=== PATIENT | female | born 1950 | race Caucasian/White ===

== ENCOUNTER 2020-03-12 05:31 | Inpatient (IN) | payer MEDICARE, OTHER ==
[~2020-03-12] VITALS: Ht 177.8 cm; Wt 67.7 kg
[2020-03-12] VITALS (26 sets, daily range): BP systolic 79–156; BP diastolic 53–92
[2020-03-12] MEDS ORDERED: LORazepam 2 MG/ML VIAL IV STA (05:35)
[2020-03-12] MEDS ORDERED: LORazepam 2 MG/ML VIAL As Ordered ONE (05:36)
[2020-03-12] MEDS ORDERED: PROPOFOL 1,000 MG/100 ML VIAL As Ordered ONE (05:41)
[2020-03-12 05:50] LABS: BASO # 0.1 10^3/uL (0.0-0.2); BASO % 0.5 % (0.0-1.0); EOS # 0.3 10^3/uL (0.0-0.5); EOS % 1.8 % (0.0-3.0); HEMATOCRIT 55.7 % (36.0-47.0); HEMOGLOBIN 19.7 g/dl (12.0-15.5); LYMPH # 1.3 10^3/uL (1.5-5.0); LYMPH % 7.6 % (24.0-44.0); MEAN CORPUSCULAR HEMOGLOBIN 36.5 pg (27.0-33.0); MEAN CORPUSCULAR HGB CONC 35.4 g/dl (32.0-36.5); MEAN CORPUSCULAR VOLUME 103.3 fl (80.0-96.0); MONO # 0.9 10^3/uL (0.0-0.8); MONO % 5.1 % (0.0-5.0); NEUTROPHILS # 14.2 10^3/uL (1.5-8.5); NEUTROPHILS % 84.6 % (36.0-66.0); PLATELET COUNT, AUTOMATED 369 10^3/uL (150-450); RED BLOOD COUNT 5.39 10^6/uL (4.00-5.40); WHITE BLOOD COUNT 16.8 10^3/uL (4.0-10.0)
[2020-03-12] MEDS ORDERED: propofoL 1,000 MG in IV 1 EA IV SCH (06:00)
[2020-03-12 06:03] LABS: INR 1.03; PARTIAL THROMBOPLASTIN TIME 26.5 SECONDS (24.2-38.5); PROTHROMBIN TIME 13.7 SECONDS (12.5-14.3)
[2020-03-12 06:06] LABS: ABG BASE EXCESS -7.4 (-2.0-2.0); ABG HCO3 21.1 MEQ/L (22.0-26.0); ABG O2 SATURATION 98.9 % (95.0-99.0); ABG PARTIAL PRESSURE CO2 52.7 mmHg (35.0-45.0); ABG PARTIAL PRESSURE O2 182.7 mmHg (75.0-100.0); ABG STANDARD HCO3 18.8 MEQ/L (22.0-26.0); ABG TOTAL CO2 22.7 MEQ/L (23.0-31.0)
[2020-03-12 06:27] LABS: ALBUMIN 3.6 GM/DL (3.2-5.2); ALT/SGPT 16 U/L (12-78); BILIRUBIN,DIRECT < 0.1 MG/DL (0.0-0.2); BILIRUBIN,TOTAL 0.5 MG/DL (0.2-1.0); BLOOD UREA NITROGEN 11 MG/DL (7-18); CALCIUM LEVEL 8.6 MG/DL (8.8-10.2); CARBON DIOXIDE LEVEL 27 MEQ/L (21-32); CHLORIDE LEVEL 98 MEQ/L (98-107); CK-MB VALUE MASS 3.7 NG/ML (<3.6); CPK CREATINE PHOSPHOKINASE 111 U/L (26-192); CREATININE FOR GFR 1.08 MG/DL (0.55-1.30); GLOMERULAR FILTRATION RATE 53.9 (>45); GLUCOSE, FASTING 152 MG/DL (70-100); MB/CK RELATIVE INDEX 3.33 (< OR =4); POTASSIUM SERUM 4.4 MEQ/L (3.5-5.1); SODIUM LEVEL 135 MEQ/L (136-145); TOTAL PROTEIN 7.5 GM/DL (6.4-8.2); TROPONIN I 0.02 NG/ML (< 0.10)
[2020-03-12] MEDS ORDERED: SUCCINYLCHOLINE INJ 200 MG/10 ML VIAL (J0330) IV STA (06:28)
[2020-03-12] MEDS ORDERED: ETOMIDATE INJ 20MG/10ML VIAL IV STA (06:28)
--- NOTE | 2020-03-12 06:47 | REPVR ---
PROCEDURE INFORMATION: Exam: XR Chest, 1 View Exam date and time: 03/12/2020 6:05 AM Age: 69 years old Clinical indication: Other: AMS; Additional info: Altered mental status TECHNIQUE: Imaging protocol: XR of the chest Views: 1 view. COMPARISON: No relevant prior studies available. FINDINGS: Tubes, catheters and devices: Termination of endotracheal tube in the right mainstem bronchus, requiring repositioning. Lungs: Interstitial prominence. Pleural space: Mild blunting of the right costophrenic angle. Heart/Mediastinum: Cardiomegaly. Vasculature: Calcification of the thoracic aorta. Bones/joints: Osteopenia, degenerative change, and scoliosis. IMPRESSION: Termination of endotracheal tube in the right mainstem bronchus, requiring repositioning. Electronically signed by: Braden Hauser On 03/12/2020 06:48:04 AM
--- NOTE | 2020-03-12 06:49 | REPVR ---
PROCEDURE INFORMATION: Exam: CT Head Without Contrast Exam date and time: 03/12/2020 5:34 AM Age: 69 years old Clinical indication: Altered mental status/memory loss; Confusion or disorientation TECHNIQUE: Imaging protocol: Computed tomography of the head without contrast. Radiation optimization: All CT scans at this facility use at least one of these dose optimization techniques: automated exposure control; mA and/or kV adjustment per patient size (includes targeted exams where dose is matched to clinical indication); or iterative reconstruction. COMPARISON: No relevant prior studies available. FINDINGS: Brain: Small-vessel ischemic change, without an acute cortical infarct. No space-occupying lesion, mass effect, or intracranial hemorrhage. Symmetric caliber of the cortical sulci. Cerebral ventricles: Normal configuration of the ventricles. Bones/joints: No acute calvarial pathology. Paranasal sinuses: No sinus fluid. Mastoid air cells: No mastoid effusion. Soft tissues: unremarkable soft tissues. IMPRESSION: Small-vessel ischemic change, without an acute cortical infarct. Electronically signed by: Braden Hauser On 03/12/2020 06:50:16 AM
[2020-03-12] MEDS ORDERED: levETIRAcetam INJection 1,000 MG in D5W 100 ML IV ONE (07:00)
[2020-03-12] MEDS ORDERED: cefTRIAXone SOD 2 GM in D5W MINI-BAG PLUS 50 ML IV ONE (07:15)
[2020-03-12] MEDS ORDERED: VANCOMYCIN HCL 1,000 MG, VIAL MATE ADAPTER 1 EACH in D5W 250 ML IV ONE (07:15)
[2020-03-12] MEDS ORDERED: ALBUTEROL SULFATE 2.5 MG/0.5 ML INH NEB SOLN NEB PRN (07:45)
[2020-03-12] MEDS ORDERED: LORazepam 2 MG/ML VIAL IV PRN (07:45)
[2020-03-12] MEDS ORDERED: NS 1,000 ML IV ONE (08:00)
[2020-03-12 08:27] LABS: ABG BASE EXCESS 1.4 (-2.0-2.0); ABG HCO3 26.5 MEQ/L (22.0-26.0); ABG O2 SATURATION 96.4 % (95.0-99.0); ABG PARTIAL PRESSURE O2 83.5 mmHg (75.0-100.0); ABG STANDARD HCO3 25.7 MEQ/L (22.0-26.0); ABG TOTAL CO2 27.8 MEQ/L (23.0-31.0); ABG pH (ARTERIAL) 7.407 UNITS (7.350-7.450)
[2020-03-12 08:47] LABS: AMPHETAMINES LEVEL URINE NEGATIVE (NEGATIVE); BARBITURATES URINE NEGATIVE (NEGATIVE); BENZODIAZEPINES URINE NEGATIVE (NEGATIVE); CANNABINOIDS URINE POSITIVE (NEGATIVE); COCAINE METABOLITE URINE NEGATIVE (NEGATIVE); METHADONE URINE NEGATIVE (NEGATIVE); OPIATES URINE NEGATIVE (NEGATIVE); PHENCYCLIDINE URINE NEGATIVE (NEGATIVE)
[2020-03-12] MEDS ORDERED: ALEV220T22 PO (08:58)
[2020-03-12] MEDS: propofoL 1,000 MG in IV 1 EA IV SCH ×4 (09:00→20:11)
[2020-03-12] MEDS: CHLORHEXIDINE GLUCONATE 0.12 % 15ML UDC (PERIDEX ORAL RINSE) MT SCH ×2 (09:00→20:11)
[2020-03-12] MEDS ORDERED: PANTOPRAZOLE 40MG VIAL (C9113 PER 1) IV SCH (09:00)
[2020-03-12 09:19] LABS: PROLACTIN 9.9 NG/ML
[2020-03-12] MEDS: ENOXAPARIN 40MG/0.4ML SYRINGE (J1650 PER 10MG) SC SCH (09:23)
[2020-03-12 10:46] LABS: C REACTIVE PROTEIN QUANTITATIV < 0.30 MG/DL (0.00-0.30)
[2020-03-12] MEDS: VANCOMYCIN HCL 750 MG, VIAL MATE ADAPTER 1 EACH in D5W 250 ML IV SCH (13:09)
[2020-03-12] MEDS: NS 0.45% 1,000 ML IV SCH (13:09)
--- NOTE | 2020-03-12 13:21 | HPE ---
HISTORY AND PHYSICAL DICTATED BY: Hemant Zamora DO. ATTENDING: Lola Osorio MD, Pulmonary Critical Care Medicine. DATE OF SERVICE: 03/12/2020 HISTORY OF PRESENT ILLNESS: Ms. Mayfield is a 69-year-old female who had presented to [facility] Emergency Department with her for a complaint of weakness and seizure like activity. The history is mostly obtained from the patient's as she is currently intubated and with sedation. The had stated that earlier in the morning at approximately 4:45 the patient had gone to the bathroom and had told the that she was feeling weird and possibly having a seizure. The patient's then states that she developed seizure like activity where her body kind of froze up. He said that she was unresponsive during this. He did not say that she was shaking just kind of appeared stiff. He states that she was not responding to him and did appear somewhat confused. When she presented to the Emergency Department she was vitally stable though felt to be somewhat hypoxic. The patient's states that to his knowledge she had not been complaining of anything prior to this. He denies any recent illnesses. He denies her complaining of any fevers, headaches, neck pains. There is no recent travel. The patient's states that to his knowledge she has not used any drugs. The patient also does not follow with any health care provider outpatient. He states that she had seen a provider previously; however, did not continue to see them as she did not like them. He stated that she was instructed to start a statin medication for her high cholesterol. The patient's denies any history that he knows of a seizure disorder. In the Emergency Room the patient was vitally stable; however, apparently had once again another witnessed episode of seizure like activity and due to the possibility of the patient being unable to protect her airway she was subsequently intubated. She was given a 1000 mg dose of Keppra. She was continued on propofol for sedation during her intubation. Additionally she was given a total of 4 mg of Ativan. Patient was given both Rocephin and vancomycin for empiric coverage of possible pneumonia. On evaluation in the Emergency Room the patient was intubated. She did not appear to be in status epilepticus at that time. PAST MEDICAL HISTORY: Hyperlipidemia. PAST SURGICAL HISTORY: Tubal ligation. SOCIAL HISTORY: Obtained from patient's who states that to his knowledge she is not a smoker. He denies any I.V. drug use or drug use. 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 REVIEW OF SYSTEMS: Review of systems was unable to be obtained due to the patient being sedated with mechanical ventilation. PHYSICAL EXAMINATION: Vital signs: Temperature 98.7, pulse 108, blood pressure 167/89, pulse oximetry 100% on ventilator assist control, respiratory rate 15, tidal volume 400, FiO2 50, PEEP 5. General: The patient is currently intubated with mechanical ventilation. She is sedated with propofol. She does appear critically ill. HEENT: Normocephalic, atraumatic. Eyes are nonicteric, they are equal and reactive to light. Dentition is fair. Neck: Her trachea is midline. She has an endotracheal tube in place. Cardiovascular: Patient has a normal S1 and S2. She has a slightly tachycardic rate with a regular rhythm. There are no clicks or rubs. There is a faint murmur, systolic ejection murmur present. Pulmonary: Patient has some scattered rhonchi bilaterally. There are no wheezes, no rales. Somewhat decreased breath sounds overall. There is symmetric chest expansion. Abdominal: Patient's abdomen is soft. It is nondistended. There is no abdominal bruising and there are no masses or organomegaly. Extremities: Patient's extremities are void of any edema. There is full and equal pulses bilateral upper and lower extremities. Neurologic: There appears to be no focal neurological deficits. A full neurological exam cannot be obtained as the patient is currently sedated with propofol. She does have some intermittent posturing during examination. LABORATORY DATA: Hematology: White blood cells 15.8, hemoglobin 19.7, hematocrit 55.7, platelet count 369. Chemistries: Sodium 135, potassium 4.4, chloride 98, CO2 27, BUN 11, creatinine 1.08, fasting glucose 152. Calcium 8.6, total bilirubin 0.5, AST 30, ALT 16, alkaline phosphatase 86. Total CK 111. Troponin 0.02. Total protein 7.5, albumin 3.6, TSH 1.38. Prolactin 9.9. Lactic acid 3.8. Urine toxicology positive for cannabinoids. Blood gas on ventilator with a pH of 7.40, PCO2 43, PO2 83.5. Carboxyhemoglobin 2.5. Blood cultures times 2 pending. IMAGING: Head CT obtained on arrival demonstrated small vessel ischemic changes without any acute cortical infarcts. Chest x-ray obtained emergently in the ER which demonstrated an endotracheal tube in the right main stem bronchus. A second chest x-ray was obtained which demonstrated improvement of positioning of the endotracheal tube; however, there appears to be some bilateral opacities possibly bilateral pulmonary infiltrates on her second chest x-ray. ASSESSMENT AND PLAN: Ms. Mayfield is a 69-year-old female who presented to [facility] with possible seizure like activity, apparently had a second witnessed seizure by ER staff and was subsequently intubated due to complications of airway protection. She was given Keppra I.V. in the Emergency Room as well as antibiotics and pulmonary critical care medicine was consulted for admission of the patient for further evaluation and management. 1. Seizure like activity: The patient had what appeared to be seizure like activity. The patient's and ER staff had stated the patient had developed some posturing like activity, she was unresponsive. Because she was unable to protect her airway she was subsequently intubated. She had been given 1000 mg of Keppra in the ED. To the 's knowledge and according to the medical record that is available the patient does not have any primary seizure disorder. She does have a leukocytosis and lactic acidosis which could be secondary to seizure like activity. Prolactin is only 9.9 at this time. Her urine toxicology did come back positive for cannabinoid ___; she is negative for any other drugs. At this time she is continued on propofol. I have spoken with neurology regarding the patient's care. At this time they will see her in the evening and their recommendations are appreciated. We will start the patient on Keppra 1000 mg twice a day for now. I have ordered an EEG inpatient to be done rather urgently to ensure that the patient is not in status epilepticus. Once patient improves clinically can consider MRI. 2. Acute hypoxemic respiratory failure: The patient had respiratory failure which is felt to be secondary to inability to protect her airway. It does appear that she likely aspirated. She has some rhonchorous breath sounds bilaterally. She has received vancomycin and Rocephin; will continue this. I have ordered a procalcitonin CRP. May consider changing over to Zosyn if patient clinically does not improve to give more coverage for aspiration pneumonia. Additionally the patient's carboxyhemoglobin is slightly elevated at 2.5. Her states she is not a smoker; however, her urine tox did come back positive for cannabinoids. If she smokes this could be consistent with that; however, if not she may have some carbon monoxide poisoning which could explain the seizure activity although the patient's physical exam is otherwise not consistent with elevated carboxyhemoglobin. Additionally patient does have the history of a murmur that apparently has never been fully investigated. 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 I have ordered an echocardiogram to assess for this. 3. Lactic acidosis: As stated patient has lactic acidosis she has been given a liter of normal saline. Her lactic acidosis may be secondary to the seizure like activity. She does not appear septic at this time. She is afebrile. 4. Leukocytosis: Once again her leukocytosis could be secondary to her seizure like activity. We will continue to monitor. She is receiving antibiotics. Procalcitonin is currently pending. 5. Murmur: Patient has a murmur; apparently this is a long standing issue since she was a child and she does not follow with any primary care physician therefore unclear what type of murmur or what clinical significance this plays; however, given her original hypoxia we will order an echocardiogram as patient's issue may be related to a possible TIA or CVA if that is the case, although at this time it does not appear to be that way. 6. DVT prophylaxis: Patient is currently on Lovenox. 7. GI prophylaxis: Patient is currently on Protonix, will continue. 8. Disposition: Patient's clinical status is currently pending and her EEG. If seizure activity may have to consider transfer otherwise we will continue to monitor patient. Critical Care Time: One hour and 30 minutes.
[2020-03-12] MEDS ORDERED: MIDAZOLAM INJ 2MG/2ML VIAL (J2250 PER 1MG) IV PRN (15:45)
[2020-03-12] MEDS ORDERED: SODIUM CHLORIDE 0.9% 1000ML IV ONE (15:45)
[2020-03-12] MEDS ORDERED: SUCCINYLCHOLINE 100 MG/5 ML SYRINGE (J0330) ONE (16:06)
[2020-03-12] MEDS ORDERED: ETOMIDATE INJ 20MG/10ML VIAL ONE (16:06)
--- NOTE | 2020-03-12 19:01 | CR ---
CONSULTATION REFERRING PHYSICIAN: Dr. Lola Osorio REASON FOR CONSULTATION: Possible seizures. HISTORY OF PRESENT ILLNESS: Petra Mayfield is a 69-year-old woman who was brought to [facility] Emergency Department due to complaint of weakness and seizure-like activity, according to . Patient was intubated. According to patient's , around 4:45 a.m. patient went to bathroom and told her that she was feeling weird. She then developed seizure-like activity, where her body froze up, and she became stiff. She was not responding to her . She appeared confused. She did not have any preceding injuries or illness. There were no complaints of headaches, fever, neck pain, or recent travel. There was no drug abuse. Patient does not follow with any outpatient provider. In the emergency room, patient had stable vital signs but again went into a seizure-like episode, and she was intubated in order to protect her airway. She was given Keppra 1000 mg intravenously, and she was started on propofol for sedation after mechanical intubation. She also received 4 mg of Ativan. Patient was given Rocephin and vancomycin. MEDICAL HISTORY: 1. Dyslipidemia. 2. Tubal ligation. SOCIAL HISTORY: She does not smoke, drink alcohol, or use illicit drugs. 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 FAMILY HISTORY: Could not be obtained. REVIEW OF SYSTEMS: Could not be obtained except as mentioned in history of present illness (HPI). PHYSICAL EXAMINATION: Temperature 97.2, pulse 128, respiratory rate 15, blood pressure 150/86 on mechanical ventilation. Patient is sedated. HEART: Regular rate and rhythm. LUNGS: Clear to auscultation. ABDOMEN: Soft, nontender. No pedal edema. No musculoskeletal abnormalities. No rash. No signs of meningeal irritation. Patient is on mechanical ventilation, under sedation. She does not follow any verbal or physical stimuli. Pupils are 3 mm bilaterally, reactive to light. Plantars are mute. Sensory, cerebellar, motor testing could not be performed. Deep tendon reflexes are mute. Gait could not be tested. DIAGNOSTIC STUDIES: CT scan of head showed small-vessel ischemic disease of brain. Hemoglobin was 19.7, hematocrit 55.7. WBC 16.8. Lactic acid 3.8. Sodium 135, prolactin level 9.9. Urine was positive for cannabinoids. ASSESSMENT: Possible generalized tonic-clonic seizures and concern for status epilepticus. PLAN: 1. Electroencephalogram (EEG). 2. MRI brain. 3. Continue Keppra 1000 mg intravenous (IV) twice a day. She is already on sedation and mechanical ventilation.
[2020-03-12] MEDS: levETIRAcetam INJection 1,000 MG in D5W 100 ML IV SCH (20:11)
[2020-03-12] MEDS: PANTOPRAZOLE 40MG VIAL (C9113 PER 1) IV SCH (20:11)
[2020-03-12] MEDS ORDERED: VANCOMYCIN HCL 1,000 MG, VIAL MATE ADAPTER 1 EACH in D5W 250 ML IV SCH (21:00)
[2020-03-13] VITALS (30 sets, daily range): BP systolic 113–168; BP diastolic 55–108; O2SAT 96
[2020-03-13] MEDS: propofoL 1,000 MG in IV 1 EA IV SCH ×6 (00:10→05:43)
[2020-03-13] MEDS: VANCOMYCIN HCL 750 MG, VIAL MATE ADAPTER 1 EACH in D5W 250 ML IV SCH (01:13)
[2020-03-13] MEDS: NS 0.45% 1,000 ML IV SCH (04:11)
[2020-03-13 05:14] LABS: HEMATOCRIT 46.9 % (36.0-47.0); MEAN CORPUSCULAR HEMOGLOBIN 36.1 pg (27.0-33.0); MEAN CORPUSCULAR HGB CONC 35.2 g/dl (32.0-36.5); MEAN CORPUSCULAR VOLUME 102.6 fl (80.0-96.0); RED BLOOD COUNT 4.57 10^6/uL (4.00-5.40); WHITE BLOOD COUNT 13.2 10^3/uL (4.0-10.0)
[2020-03-13 05:23] LABS: HEMOGLOBIN 16.5 g/dl (12.0-15.5); PLATELET COUNT, AUTOMATED 257 10^3/uL (150-450)
[2020-03-13] MEDS: levETIRAcetam INJection 1,000 MG in D5W 100 ML IV SCH ×3 (05:31→20:54)
[2020-03-13 05:40] LABS: ABG BASE EXCESS 0.1 (-2.0-2.0); ABG HCO3 24.5 MEQ/L (22.0-26.0); ABG PARTIAL PRESSURE CO2 39.1 mmHg (35.0-45.0); ABG PARTIAL PRESSURE O2 88.6 mmHg (75.0-100.0); ABG STANDARD HCO3 24.5 MEQ/L (22.0-26.0); ABG TOTAL CO2 25.7 MEQ/L (23.0-31.0); ABG pH (ARTERIAL) 7.414 UNITS (7.350-7.450)
[2020-03-13 05:40] LABS: ALBUMIN 2.8 GM/DL (3.2-5.2); BILIRUBIN,TOTAL 0.8 MG/DL (0.2-1.0); CALCIUM LEVEL 7.7 MG/DL (8.8-10.2); CK-MB VALUE MASS 1.9 NG/ML (<3.6); CREATININE FOR GFR 1.04 MG/DL (0.55-1.30); GLOMERULAR FILTRATION RATE 56.3 (>45); MB/CK RELATIVE INDEX 1.51 (< OR =4); POTASSIUM SERUM 3.1 MEQ/L (3.5-5.1); TOTAL PROTEIN 5.4 GM/DL (6.4-8.2); TROPONIN I 0.04 NG/ML (< 0.10)
[2020-03-13] MEDS ORDERED: MAG SULF 1GM/100ML (MAG RUN) 1 GM in IV 1 EA IV ONE (06:00)
[2020-03-13 06:04] LABS: MAGNESIUM LEVEL 1.7 MG/DL (1.8-2.4)
[2020-03-13] MEDS: KCL 10MEQ/100ML SWI (KRUN) 10 MEQ in IV 1 EA IV SCH ×6 (06:30→13:48)
--- NOTE | 2020-03-13 07:51 | REP ---
INDICATION: intubated. COMPARISON: Portable chest dated 03/12/2020 at 6:52 a.m.. TECHNIQUE: Single AP view performed portably with the patient upright. FINDINGS: The endotracheal tube tip remains in satisfactory position at the level of the aortic arch. There is a nasogastric tube with the to her hip but terminating in the left upper abdomen. The precise location of the distal tip is excluded with inferior film margin. There is a small opacity inferiorly in the left lung compatible with an infiltrate. The remainder of the lung lechuga are clear. Cardiac size is normal. The rosario, mediastinum, and skeletal structures are unremarkable. IMPRESSION: Small focal infiltrate inferiorly in the left lung. The endotracheal tube and nasogastric tube remain in satisfactory positions. <Electronically signed by Simon Young > 03/13/20 [id number]
[2020-03-13] MEDS ORDERED: cefTRIAXone SOD 2 GM in D5W MINI-BAG PLUS 50 ML IV SCH (08:00)
--- NOTE | 2020-03-13 08:18 | ECGEPIP ---
[facility] - ED Test Date: 2020-03-12 Pat Name: MCKENZIE OSEI Department: Room: - Gender: Female Combat Control: BERNARDA : 1950 Requested By: REMA Cobos Order Number: [id number] Reading MD: Steven Howard Measurements Intervals [place] Rate: 113 P: 84 GA: 190 QRS: -48 QRSD: 85 T: 87 QT: 339 QTc: 466 Interpretive Statements SINUS TACHYCARDIA WITH FREQUENT SUPRAVENTRICULAR PREMATURE COMPLEXES LEFT AXIS DEVIATION LEFT VENTRICULAR HYPERTROPHY AND ST-T CHANGE Comparison tracing not on file Electronically Signed on 03-13-2020 8:18:38 EST by Steven Howard
[2020-03-13] MEDS: ENOXAPARIN 40MG/0.4ML SYRINGE (J1650 PER 10MG) SC SCH (08:51)
[2020-03-13] MEDS: PANTOPRAZOLE 40MG VIAL (C9113 PER 1) IV SCH ×2 (08:51→20:54)
[2020-03-13] MEDS ORDERED: METOPROLOL TART 12.5 MG PER 1/2 TAB PO SCH (09:00)
[2020-03-13] MEDS ORDERED: FUROSEMIDE 20MG/2ML VIAL (J1940) IV ONE (11:00)
[2020-03-13 11:02] LABS: CALCIUM LEVEL 8.6 MG/DL (8.8-10.2); CREATININE FOR GFR 1.06 MG/DL (0.55-1.30); PERCENT SATURATION 13.9 % (13.2-45.0); POTASSIUM SERUM 3.5 MEQ/L (3.5-5.1)
--- NOTE | 2020-03-13 11:27 | CCN ---
CRITICAL CARE NOTE DATE: 03/13/2020 SUBJECTIVE: Ms. Mayfield was seen and examined this morning. She did well on sedation vacation. She was a little rapid shallow and breathing index was a little high; however, the patient is seen to have good strength. She was subsequently extubated today and appears to be doing well, currently on room air. On reevaluation, the patient is rather agitated at times. She does not appear to be oriented to person, place, or time; however, her orientation appears to wax and wane. According to nurses overnight, the patient did have some bloody output from her NG tube, and she was started on b.i.d. Protonix. Currently as I was seeing the patient, she appears to be confused at times and does not provide any additional history. She does not complain of any pain. She just states that she does not want to speak with me. OBJECTIVE: VITAL SIGNS: Temperature 97.9, pulse 103, respiratory rate 19, blood pressure 157/95, pulse oximetry 96% on room air. GENERAL: The patient is awake and alert. She is intermittently oriented to person. She is not oriented to time or place. The patient does appear confused. She does state that she feels confused herself. HEENT: Atraumatic, normocephalic. Her eyes are nonicteric. Pupils are equal and reactive to light. Trachea is midline. Her mucous membranes are pink and moist. CARDIOVASCULAR: Patient has a normal S1, S2. She has a tachycardic rate with some ectopic beats. There is a faint murmur present that appears to be systolic. There are no clicks or rubs. PULMONARY: The patient has somewhat decreased breath sounds, but overall good respiratory effort. There are some rhonchi mostly in the left lower lung region. She does have some scattered wheezing throughout. There are no crackles or rales. ABDOMEN: The patient's abdomen is soft, nondistended, and nontender with no rebound tenderness or guarding. There are normoactive bowel sounds. No organomegaly. EXTREMITIES: The patient's extremities are void of any edema. There are full and equal pulses bilaterally. NEUROLOGIC: The patient appears to move all limbs spontaneously. There are no focal neurological deficits. She does not participate in a full neurological exam as she gets agitated. PSYCHIATRIC: The patient appears agitated. LABORATORY DATA: Hematology: White blood cell 13.2, hemoglobin 16.5, hematocrit 46.9, platelet count 257,000. Chemistries: Sodium 133, potassium 3.1, chloride 99, CO2 of 27, BUN 12, creatinine 1.04, glucose 97, calcium 7.7, magnesium 1.7, total bilirubin 0.8, AST 21, ALT 10, alkaline phosphatase 68, total protein 5.4, albumin 2.8. Troponin 0.04. Microbiology: Blood cultures negative x2. IMAGING: Chest x-ray obtained prior to her extubation demonstrated her endotracheal tube and nasogastric tube in satisfactory position; however, there appears to be a small opacity in the left lower lung. Transthoracic echocardiogram report JESUS demonstrating severe global left ventricular hypokinesis with mild paradoxical septal motion with LVEF of approximately 15% with low cardiac output. Grade 1 left ventricular diastolic dysfunction with impaired relaxation filling pattern and some sparkle appearance of the myocardium with right ventricular hypokinesis. There is some thickening of the interatrial septum and trace pericardial effusion with increased pulmonary artery systolic pressures and mild mitral regurgitation and mild aortic valve sclerosis, possibly secondary to infiltrative cardiomyopathy. ASSESSMENT AND PLAN: Mrs. Mayfield is a 69-year-old female who presents to [facility] Emergency Department originally with seizure-like activity and was intubated due to complications of airway protection. She was started on Keppra intravenous (IV) in the emergency room, as well as antibiotics. The patient was transferred to the intensive care unit (ICU) where pulmonary critical care medicine was consulted. She has been receiving Keppra 1000 mg b.i.d. She has been successfully extubated today currently pending EEG and MRI. 1. Seizure-like activity: The patient had what appeared to be seizure-like activity according to the patient's and ER staff. She had some posturing-like activity and was unresponsive. Additionally, the patient was noted to become aggressive, agitated, and required endotracheal intubation due to inability to protect her airway. She has since been started on Keppra 1000 mg b.i.d. The patient has been seen by neurology, the case has been discussed, and their recommendations are appreciated. Currently continuing Keppra 1000 mg b.i.d. The patient is planned to have an EEG today, as well as an MRI today. At this time, not completely clear whether the patient truly had a seizure or not. 2. Acute hypoxemic respiratory failure: The patient's acute hypoxemic respiratory failure was secondary to her inability to protect her airway. It does look like she has possibly aspirated. She does have some continued scattered rhonchi worse on the left side. Additionally, her chest x-ray from today did demonstrate an infiltrate in the left lung base. She has received both vancomycin and Rocephin and currently continued on this. Anticipate will likely post exchange manager to Augmentin p.o.; however, the patient has just been extubated, so will likely post exchange manager once she is able to tolerate p.o. Will continue to monitor. Currently the patient is on room air and doing well. 3. Heart murmur: The patient's had stated that she has had a heart murmur since childhood. We have ordered a TTE, which has resulted. Per TTE report, the patient has severe global left ventricular hypokinesis with mild paradoxical septal motion with an left ventricular ejection fraction (LVEF) of 15%, low cardiac output, and a grade 1 left ventricular diastolic dysfunction with impaired relaxation filling pattern, and right ventricular hypokinesis with some thickening of the interatrial septum with a trace pericardial effusion, as well as mild increased pulmonary artery (PA)systolic pressure, mild mitral regurgitation (MR), and mild aortic valve sclerosis. Given these findings, it was suggested that the patient possibly has an infiltrative cardiomyopathy such as amyloidosis; however, she does have a polycythemia, which can be seen in the setting of hemochromatosis. We will order iron studies to investigate whether she has a hemochromatosis with involvement of the myocardium. 4. Aspiration pneumonia/pneumonitis: As stated previously, the patient likely has aspiration pneumonia/pneumonitis. White count is slightly elevated. She remains afebrile, but during her episode of her seizure-like activity she likely aspirated. Chest x-ray does demonstrate an infiltrate in the left base. She has been receiving Rocephin and vancomycin. Once able to tolerate p.o., we will change to Augmentin 875 twice daily for five to seven days. 5. Polycythemia: Previously the patient had polycythemia maybe secondary to smoking, although slightly elevated for that. Given her TTE findings, this could be secondary to hemochromatosis. I have ordered iron studies. We will continue to monitor. 6. Tachycardia: The patient has sinus tachycardia with occasional premature ventricular contractions (PVCs). I have started her on metoprolol 12.5 mg b.i.d. for heart rate control. 7. Deep vein thrombosis (DVT) prophylaxis: The patient is currently on Lovenox 40 mg daily and will continue. 8. Gastrointestinal (GI) prophylaxis: The patient was noted to have maybe some blood angelito in her nasogastric (NG) tube yesterday. She has been started on Protonix 40 mg b.i.d. and will continue for now. DISPOSITION: Overall, the patient has shown improvement. She is currently extubated doing well on room air. Her clinical status is pending on the EEG and MRI ordered for today. However, will likely transition to hospital service and downgrade to progressive care unit (PCU) with 24-48 hours. Critical care time: 45 minutes.
--- NOTE | 2020-03-13 12:31 | ECHO ---
DATE OF PROCEDURE: 03/12/2020 Age: 69 Gender: Female Height: 177 cm Weight: 64 kg REFERRING PHYSICIAN: Hemant Zamora DO. INDICATION: Acute stroke. MEASUREMENTS: 2D Measurements: Left atrium 2.4 cm Intraventricular septum 1.19 cm Posterior wall 0.87 cm Left ventricle diastole 4.85 cm Aortic annulus 1.9 cm Aortic root 3.1 cm Proximal ascending aorta 3.2 cm Inferior vena cava 1.1 cm with more than 50% respiratory variation Central venous pressure estimated to be 5-10 mmHg Doppler Measurements: No aortic stenosis No aortic regurgitation Aortic valve velocity 116 cm/s LVOT velocity 76.5 cm/s LVOT VTI 12.0 cm Mild mitral regurgitation Mitral E velocity 48.7 cm/s Mitral A velocity 71.0 cm/s Mitral deceleration time 180 msec Trace tricuspid regurgitation No pulmonic regurgitation Pulmonary artery acceleration time 99 msec MITRAL ANNULAR TISSUE DOPPLER E prime septal 2.6 cm/s, E prime lateral 3.7 cm/s DESCRIPTION: Rhythm was sinus with the appearance of monomorphology suggestive LVDD. Image quality was adequate. This was a 2D, M-mode, color flow Doppler, and pulsed wave Doppler examination including mitral annular tissue Doppler. CONCLUSIONS: 1. Normal left ventricle size at end-diastole. Severely globally hypokinetic left ventricle with very mild paradoxical septal motion. Severe reduction of left ventricular left ventricular (LV) systolic function. Left ventricular ejection fraction (LVEF) of 15% by visual assessment. Somewhat sparkly/ground- glass appearance of the myocardium. Grade 1 left ventricular (LV) diastolic dysfunction (impaired relaxation filling pattern). Suggestive of elevated mean left atrial pressure. 2. Normal right ventricle size with severe right ventricle hypokinesis. Severe reduction of overall right ventricle systolic function. 3. Suggestive of mild elevation of pulmonary artery systolic pressure. 4. Somewhat thick appearance of the interatrial septum possibly due to harmonic imaging alone. Consider infiltrative process. 5. Mild aortic valve sclerosis of a 3-cuspid aortic valve aortic valve. No aortic regurgitation. 6. Nonspecific focal thickening of the distal portion of the anterolateral tricuspid leaflet. Trace tricuspid regurgitation. 7. Late occurrence of a few saline bubbles observed in the left ventricle (nonspecific). 8. Trace pericardial effusion. ADDITIONAL COMMENTS: Consider infiltrative cardiomyopathy, for example consider amyloidosis. MTDD
[2020-03-13] MEDS ORDERED: haloperidoL 5 MG TAB PO ONE (14:00)
[2020-03-13] MEDS ORDERED: LORazepam 1 MG TAB PO ONE (14:00)
[2020-03-13] MEDS ORDERED: LORazepam 2 MG/ML VIAL IV STA (14:23)
[2020-03-13] MEDS ORDERED: PROHANCE 279.3MG/ML 15ML VIAL As Ordered ONE (14:26)
[2020-03-13] MEDS: SPIRONOLACTONE 25 MG TAB PO SCH (16:21)
[2020-03-13] MEDS: METOPROLOL SUCC *XL* 25MG TAB (TopROL *XL*) PO SCH (16:22)
[2020-03-13 17:58] LABS: APPEARANCE, URINE CLEAR (CLEAR); BACTERIA, URINE AUTO 1+ (NEGATIVE); BILIRUBIN, URINE AUTO NEGATIVE (NEGATIVE); BLOOD, URINE BLOOD 2+ (NEGATIVE); COLOR, URINE STRAW (YELLOW); GLUCOSE, URINE (UA) AUTO NEGATIVE (NEGATIVE); KETONE, URINE AUTO NEGATIVE (NEGATIVE); LEUKOCYTE ESTERASE, URINE AUTO NEGATIVE (NEGATIVE); MUCUS, URINE SMALL (NEGATIVE); NITRITE, URINE AUTO NEGATIVE (NEGATIVE); PROTEIN, URINE AUTO NEGATIVE (NEGATIVE); RBC, URINE AUTO 18 /HPF (0-3); SPECIFIC GRAVITY URINE AUTO 1.006 (1.002-1.035); SQUAMOUS EPITHELIAL CELL UR AU 0 /HPF (0-6); UROBILINOGEN, URINE AUTO 0.2 mg/dL (0.0-2.0); WBC, URINE AUTO 2 /HPF (0-3)
[2020-03-13 18:29] LABS: CREATININE,RANDOM URINE 24.8 MG/DL
[2020-03-13 19:20] LABS: ABG BASE EXCESS 4.4 (-2.0-2.0); ABG HCO3 30.8 MEQ/L (22.0-26.0); ABG O2 SATURATION 98.9 % (95.0-99.0); ABG PARTIAL PRESSURE CO2 51.5 mmHg (35.0-45.0); ABG PARTIAL PRESSURE O2 139.3 mmHg (75.0-100.0); ABG STANDARD HCO3 28.4 MEQ/L (22.0-26.0); ABG TOTAL CO2 32.3 MEQ/L (23.0-31.0); ABG pH (ARTERIAL) 7.394 UNITS (7.350-7.450)
[2020-03-13] MEDS: ENTRESTO 24-26MG TABLET (SACUBITRIL/VALSARTAN) PO SCH ×2 (20:55→21:00)
[2020-03-14] VITALS (9 sets, daily range): BP systolic 121–155; BP diastolic 58–77
[2020-03-14 05:19] LABS: BASO # 0.1 10^3/uL (0.0-0.2); BASO % 0.5 % (0.0-1.0); EOS # 0.3 10^3/uL (0.0-0.5); EOS % 1.9 % (0.0-3.0); HEMATOCRIT 49.7 % (36.0-47.0); LYMPH # 1.1 10^3/uL (1.5-5.0); LYMPH % 7.3 % (24.0-44.0); MEAN CORPUSCULAR HEMOGLOBIN 35.8 pg (27.0-33.0); MEAN CORPUSCULAR HGB CONC 34.2 g/dl (32.0-36.5); MEAN CORPUSCULAR VOLUME 104.6 fl (80.0-96.0); MONO # 1.3 10^3/uL (0.0-0.8); MONO % 8.8 % (0.0-5.0); NEUTROPHILS # 12.2 10^3/uL (1.5-8.5); PLATELET COUNT, AUTOMATED 255 10^3/uL (150-450); RED BLOOD COUNT 4.75 10^6/uL (4.00-5.40); WHITE BLOOD COUNT 15.1 10^3/uL (4.0-10.0)
[2020-03-14 05:54] LABS: BLOOD UREA NITROGEN 10 MG/DL (7-18); CALCIUM LEVEL 8.2 MG/DL (8.8-10.2); CARBON DIOXIDE LEVEL 27 MEQ/L (21-32); CHLORIDE LEVEL 102 MEQ/L (98-107); CREATININE FOR GFR 0.81 MG/DL (0.55-1.30); GLOMERULAR FILTRATION RATE > 60.0 (>45); GLUCOSE, FASTING 92 MG/DL (70-100); MAGNESIUM LEVEL 1.8 MG/DL (1.8-2.4); POTASSIUM SERUM 3.4 MEQ/L (3.5-5.1); SODIUM LEVEL 137 MEQ/L (136-145)
--- NOTE | 2020-03-14 08:04 | REP ---
INDICATION: intubated. COMPARISON: Of portable chest dated 03/13/2020 at 6:20 a.m.. TECHNIQUE: Single AP view of the chest performed portably with the patient upright. FINDINGS: The endotracheal tube and nasogastric tube have been removed. The small infiltrate identified previously in the left lung inferiorly has resolved. There is a new zone of discoid atelectasis in the left mid lung. There is atelectasis in the lung bases bilaterally. The upper lung zones are clear. Cardiac size is normal. IMPRESSION: New findings as described above. <Electronically signed by Simon Young > 03/14/20 0800
[2020-03-14] MEDS ORDERED: PANTOPRAZOLE 40MG VIAL (C9113 PER 1) IV SCH (09:00)
[2020-03-14] MEDS: levETIRAcetam INJection 1,000 MG in D5W 100 ML IV SCH (09:52)
--- NOTE | 2020-03-14 09:52 | CR ---
CONSULTATION DATE OF CONSULTATION: 03/13/2020 REFERRING PHYSICIAN: Hemant Zamora REASON FOR CONSULTATION: Acute on chronic systolic heart failure, dilated cardiomyopathy. HISTORY OF PRESENT ILLNESS: Mrs. Petra Mayfield is a 69-year-old woman with history of hypercholesterolemia who apparently does not follow with doctors on a regular basis. She was brought to the hospital with altered mental status and complaints of weakness and convulsive activity 03/12/2020. She was having recurrent seizures and was admitted to the intensive care unit (ICU). She had acute hypoxic respiratory failure and required intubation and ventilation, lactic acidosis, leukocytosis, and heart murmur. She was given medication for seizures. She was able to be extubated earlier today. No family members were present at the time of my evaluation of this patient. The patient has been combative and uncooperative since being extubated. She just received sedation and was not able to answer any questions for me. She had an echocardiogram Doppler performed 03/12/2020 which has been reported under separate cover. The left ventricle was normal in size at end-diastole. The left ventricle is severely globally hypokinetic with very mild paradoxical septal motion and severe reduction of overall left ventricle (LV) systolic function. Left ventricular ejection fraction (LVEF) 15% by visual estimate. Somewhat sparkly/ground glass appearance of the myocardium. Grade 1 LV diastolic dysfunction. Impaired relaxation filling pattern. Suggestive of elevated mean left atrial pressure. Normal right ventricle (RV) size with severe right ventricle hypokineses. Severe reduction of overall RV systolic function. Suggestive of mild elevation of pulmonary artery systolic pressure. Somewhat thick appearance of the intraatrial septum possibly due to harmonic imaging alone. Consider infiltrative process. Mild aortic valve sclerosis of a three-cusp aortic valve. No aortic stenosis or regurgitation. Nonspecific focal thickening of the distal portion of the anterior mitral tricuspid leaflet with trace mitral regurgitation. Late occurrence of a few bubbles observed in the left ventricle (nonspecific). Trace pericardial effusion. CARDIAC SYMPTOMS STATUS: Patient currently unable to answer any questions with regard to cardiac symptoms due to sedation. PAST MEDICAL AND SURGICAL HISTORY: Hyperlipidemia. Status post tubal ligation. SOCIAL HISTORY: Social history obtained from the history of present illness (HPI) of the present medical electronic medical records (EMR). Nonsmoker. No IV drug abuse. 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 REVIEW OF SYSTEMS: Unobtainable due to patient being sedated. PHYSICAL EXAMINATION: At the time of my examination, the patient was sedated and verbally unresponsive. Normal body weight woman, , who appears her chronological age. Height 70 inches, weight 67.7 kg, body mass index (BMI) 21.4. Pulse 113 (regular), respiratory rate 24, temperature 97.8, blood pressure 137/95, oxygen saturation 89% on room air. No conjunctival pallor, sclerae icterus, or xanthelasmas. Oral mucosa was moist and without pallor or cyanosis. Jugular venous pulsations were to the angle of the jaw with the patient angled at 30 degrees. Trachea midline. No palpable thyroid. No clubbing of the nail beds, cyanosis, or splinter hemorrhages. No skin lesions, skin pallor, or icterus. Mood and affect and orientation to person, place, and time could not be properly assessed as the patient has received sedation and was verbally non-responsive. Curvature of the spine appeared normal. Gait could not be tested as the patient is sedated. Gross motor strength and tone could not be adequately assessed as the patient is presently sedated. Respiratory and expansion and effort appeared normal. No dullness to percussion. No crackles or wheezes. No palpable apex beat. No parasternal lifts, heaves, thrills, or palpable heart sounds. First heart sound normal. Second heart sound was increased in intensity. A mid diastolic gallop was present. No diastolic murmurs. Grade 2 systolic ejection murmur heard maximum over the right second intercostal space. Carotids were normal in volume and contour without bruits. No palpable abdominal aorta. No abdominal bruits. Pedal pulses normal. No peripheral edema in the lower extremities. No varicose veins. Abdomen was soft with normal bowel sounds. No hepatosplenomegaly or other organomegaly. Liver span was difficult to assess. Stool for occult blood not presently indicated. INVESTIGATIONS: Electrocardiogram 03/12/2020 at 0625 hours shows sinus tachycardia with frequent premature atrial contractions (PACs), left ventricular hypertrophy (LVH) by voltages, left axis deviation, nonspecific ST-T abnormalities. AP portable chest x-ray (upright) acquired 03/12/2020 at 0620 hours reported a small focal infiltrate inferiorly in the left lung. Endotracheal tube and nasogastric tube in satisfactory positions. Cardiac size normal. Remainder of the lung lechuga clear. Laboratory work 03/13/2020 showed sodium 135, potassium 3.5, chloride 100, CO2 25, BUN 11, creatinine 1.06, estimated GFR 55.0, glucose 108, calcium 8.6, NT-proBNP 3392, total protein 5.4, albumin 2.8. Laboratory work 03/12/2020 showed lactic acid 3.8, TSH 1.30. Laboratory work 03/12/2020 showed WBC 16.8, hemoglobin 19.7, hematocrit 55.7, platelets 369. ASSESSMENT AND RECOMMENDATIONS: 1. Dilated cardiomyopathy involving both the left and right ventricles. Left ventricle was severely globally hypokinetic with no distinct regional wall motion abnormalities. Slight paradoxical motion appeared to be present. A somewhat ground glass/sparkly appearance of the myocardium raises concern for infiltrative cardiomyopathy such as amyloid. At this point, there is a wide range of possibilities for the differential diagnoses for the etiology of this patient's dilated cardiomyopathy including, but not all inclusive of: idiopathic dilated cardiomyopathy, postviral cardiomyopathy, genetic/familial cardiomyopathy, infiltrative cardiomyopathy such as amyloid cardiomyopathy, and less likely ischemic cardiomyopathy. At this point, I recommend getting the patient on anti-heart failure therapy and maximizing this as much as possible while in hospital. She can be worked up more extensively as an outpatient and if they are willing to go to [place], [place] she could be referred to an advanced heart failure specialist with consideration of obtaining a cardiac catheterization and a cardiac MRI. With regard to initiating heart failure therapy, I have switched her from metoprolol tartrate to metoprolol succinate. My plan is to titrate this medication upwards as tolerated while she is in hospital. I will introduce Entresto. I will place her on an oral fluid restriction and sodium restriction. Recommend patient be seen by cardiac rehabilitation. I will consider adding spironolactone as well to the patient's regimen. 2. Systolic heart failure (acute on chronic). As per dilated cardiomyopathy category above. 3. Hypercholesterolemia. Recommend obtaining a fasting lipid profile once the patient is back on an oral diet. She was not on any statin therapy prior to admission. 4. Nonrheumatic aortic valve disease. She has a systolic ejection murmur. No aortic stenosis or regurgitation detected on the echocardiogram. 5. Abnormal ECG. ECG findings as above. Thank you kindly for asking me to participate in the cardiac care of this patient.
[2020-03-14] MEDS ORDERED: MAG SULF 1GM/100ML (MAG RUN) 1 GM in IV 1 EA IV ONE (10:00)
[2020-03-14] MEDS: ENTRESTO 24-26MG TABLET (SACUBITRIL/VALSARTAN) PO SCH ×2 (10:06→21:27)
[2020-03-14] MEDS: SPIRONOLACTONE 25 MG TAB PO SCH (10:06)
[2020-03-14] MEDS: METOPROLOL SUCC *XL* 25MG TAB (TopROL *XL*) PO SCH (10:07)
[2020-03-14] MEDS: ENOXAPARIN 40MG/0.4ML SYRINGE (J1650 PER 10MG) SC SCH (10:08)
[2020-03-14] MEDS: PANTOPRAZOLE 40MG TAB (PROTONIX) PO SCH (10:09)
--- NOTE | 2020-03-14 10:45 | CCN ---
CRITICAL CARE NOTE DATE: 03/14/2020 SUBJECTIVE: Ms. Mayfield was seen and examined this morning. This morning, the patient does appear to be a little more alert. She is more conversant; however, she does have in and out issues with confusion in terms of what year it is. Further history was taken from the patient's who has revealed today that she does have some degree of dementia; although, the patient overall does not follow with any health care providers. Apparently, the patient does not like health care providers, she does not believe in conventional medicine, and follows a holistic approach to her medical care. This morning, the patient had stated that she feels okay and that the only thing that was bothering her was the current providers. When asked at bedside the patient's goals of care, she had stated that she would like to be DNR/DNI. She has also refused all of her medications, as well as any of the imaging tests that were previously ordered. This was discussed with the patient's who would be her health care proxy. He stated that he will discuss with his daughter to contact the patient and have a discussion. At this time, she does remain FULL CODE. The patient was updated on her condition including her biventricular heart failure. She states that she would not want any invasive procedures done at this current time. OBJECTIVE: VITAL SIGNS: Temperature 98.6, pulse 94, respiratory rate 16, blood pressure 146/58, pulse oximetry 96% on room air. GENERAL: The patient is awake. She is alert. She is oriented to person and place, but not time. She does appear agitated at times during the exam and confused at times. She has somewhat of a flat affect. HEENT: Atraumatic/normocephalic. Eyes are nonicteric. Trachea is midline. Mucous membranes are pink and moist. There is no macroglossia. CARDIOVASCULAR: The patient has a normal S1, S2. She has a fairly tachycardic heart rate. There is a regular rhythm with occasional ectopic beats. She does have a soft systolic ejection murmur present. PULMONARY: She has overall clear vesicular breath sounds though there are some mild rhonchi in the left lower lung region. She has symmetric chest expansion. ABDOMEN: The patient's abdomen is soft, nondistended, and nontender. There are normoactive bowel sounds. EXTREMITIES: The patient is void of any edema. There are full and equal pulses in bilateral upper and lower extremities. NEUROLOGIC: There are no focal neurological deficits. PSYCHIATRIC: The patient has an overall flat affect. LABORATORY DATA: Hematology: White blood cell 15.1, hemoglobin 17.0, hematocrit 49.7, platelet count 255,000. Chemistries: Sodium 137, potassium 3.4, chloride 102, CO2 of 27, BUN 10, creatinine 0.81, fasting glucose 92, calcium 8.2, magnesium 1.8. Erythropoietin 66.2. NT-proBNP 3392. Peripheral smear demonstrating erythrocytes appear normal in number and macrocytic with an increase in hemoglobin level. Leukocytes, neutrophils, and platelet count within normal limits. ASSESSMENT AND PLAN: Mrs. Mayfield is a 69-year-old female with no known past medical history who presented to [facility] Emergency Department originally with seizure-like activity and was intubated due to reported airway protection. She was started on Keppra intravenous (IV) in the emergency room, as well as antibiotics and transferred to the intensive care unit (ICU) where pulmonary critical care medicine was consulted. She has since been started on Keppra b.i.d. She was successfully extubated yesterday. She had an EEG and MRI pending. After extubation, the patient has remained fairly agitated and noncompliant. She refuses EEG and MRI, as well as her medications. She had received an echocardiogram, which demonstrated biventricular heart failure with a left ventricular ejection fraction (LVEF) of 15%. The patient has been seen and evaluated by cardiology with recommendations. 1. Seizure-like activity: On original presentation, the patient had reportedly had seizure-like activity per the patient's and ER staff. This was apparently posturing-like activity and at one point, she became unresponsive with inability to protect her airway and she was intubated in the ER. She has since been extubated and doing fairly well. She has continued on 1000 mg b.i.d. of Keppra. She has been seen by neurology and their recommendations are appreciated. She had an EEG that was planned; however, the patient has refused to have this. Initially, MRI was ordered as well. Once again, she has refused the MRI. At this point in time, it is not completely clear whether the patient truly had a seizure or not. She is continued on intravenous (IV) Keppra. She has been refusing all her other p.o. medications and it is likely that she will refuse Keppra when transitioned to p.o. Her goals of care were discussed with her. Currently she states that she wants to be DO NOT RESUSCITATE / DO NOT INTUBATE (DNR/DNI). At this time, the patient's was made aware of this. He states that he will talk with her and feel out what her wishes are. 2. Acute hypoxemic respiratory failure: The patient apparently had acute hypoxemic respiratory failure secondary to inability to protect her airway. She likely aspirated. She does have an infiltrate in the left lung base that was noted on her chest x-ray. She had been receiving vancomycin and Rocephin. The vancomycin was discontinued yesterday as her methicillin-resistant Staphylococcus aureus (MRSA) screen was negative. Her Rocephin will be discontinued today as she is able to tolerate p.o. We will change her to Augmentin 875 b.i.d. for five days. 3. New onset systolic and diastolic congestive heart failure with left ventricular ejection fraction (LVEF) of 15%, likely nonischemic cardiomyopathy. As stated previously, the patient had a JESUS, which demonstrated severe global left ventricular hypokinesis with mild paradoxical septal motion with an left ventricular ejection fraction of 15%, low cardiac output, and a grade 1 left ventricular diastolic dysfunction with impaired relaxation filling pattern and right ventricular hypokinesis with some thickening of the interatrial septum with a trace pericardial effusion, and some mild increased pulmonary artery systolic pressure, mild mitral regurgitation, and mild right aortic valve sclerosis. 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 Porras, who had suggested a possible infiltrative cardiomyopathy or amyloidosis. The patient does have polycythemia, which could be in the setting of this. Serum iron had been ordered, as well as ferritin to rule out hemochromatosis for which her iron and ferritin levels are not elevated. Regarding amyloidosis, the patient denies any carpal tunnel-like symptoms. There is no other evidence of amyloid; however, this does not completely rule out possible amyloidosis. At this time, she has been started on Entresto, Spironolactone, as well as metoprolol 25 mg daily. The patient unfortunately has been refusing her medications, which is not uncommon for her, as stated by her she does not believe in conventional medicine. At this time, the goals of care with the patient to be discussed as she would need to be on medications halfway. Additionally, she would likely need a possible heart catheterization, as well as possible biopsy to identify whether she has amyloid or not. The patient in the room states that she would not want any type of intervention like this currently. 4. Aspiration pneumonia/pneumonitis: As stated previously, the patient likely developed aspiration pneumonia/pneumonitis. White count slightly elevated, although coming down. Chest x-ray demonstrated infiltrate in the left base likely secondary to aspiration when she was originally intubated. She has been on Rocephin and vancomycin. The vancomycin was discontinued yesterday. The Rocephin will be discontinued today and she will be changed to oral Augmentin 875 mg twice a day for five days. 5. Polycythemia: The patient has polycythemia. EPO is also elevated possibly secondary to smoking, although the patient's states she does not smoke although she was positive for cannabinoids on her urine toxicology. Amyloidosis can also in some rare cases cause polycythemia. Additionally, she does have blood in her urine maybe secondary to renal cell carcinoma. We will currently trend this. 6. Tachycardia: The patient has sinus tachycardia with occasional premature ventricular contractions. She is currently on metoprolol 25 mg daily. 7. Deep vein thrombosis (DVT) prophylaxis: The patient is currently on Lovenox 40 mg daily to be continued. 8. Gastrointestinal (GI) prophylaxis: The patient is currently on Protonix daily and will continue for now. DISPOSITION: Overall, the patient has shown improvement. It would appear that she is at her baseline mentation. According to her , she does have some underlying dementia. She has refused her EEG and MRI today and these will likely not be able to be completed. Goals of care were discussed with her. She wishes to be DNR/DNI. The patient's has been contacted for confirmation of this. He states that he will speak with her and then update us regarding this status. However, the patient has shown improvement and she does not currently remain critically ill. Therefore, we will transfer her to [facility] with telemetry. We will sign off to hospital service at this time.
[2020-03-14] MEDS ORDERED: KCL 10MEQ/100ML SWI (KRUN) 10 MEQ in IV 1 EA IV ONE (11:00)
[2020-03-14] MEDS: AUGMENTIN 875 MG TAB PO SCH ×2 (11:41→21:27)
[2020-03-14] MEDS ORDERED: POTASSIUM CHLORIDE 10 MEQ SR TABLET PO ONE (12:00)
[2020-03-14] MEDS ORDERED: PROHANCE 279.3MG/ML 15ML VIAL As Ordered ONE (16:24)
--- NOTE | 2020-03-14 17:03 | REP ---
INDICATION: seizures. COMPARISON: Comparison head CT study March 12, 2020.. TECHNIQUE: The patient was not able to tolerate the complete examination and apparently became too agitated to continue after diffusion-weighted and T1 weighted axial and sagittal scans were acquired. FINDINGS: No bony calvarial lesion is seen. Craniocervical junction and upper cervical cord are normal in appearance. There is no MR evidence of significant paranasal sinus disease. No intraorbital abnormality is seen. The lateral, third, and fourth ventricles are normal in size and position. Taylor-white differentiation pattern is intact above and below the tentorium. There is no evidence of intracranial hemorrhage. No mass, infarction, extra-axial fluid collection or midline shift is seen. No abnormal white matter lesion is seen. Diffusion-weighted scans show no evidence of restricted diffusion to suspect acute ischemia. IMPRESSION: No evidence of acute ischemia, mass, hemorrhage or extra-axial fluid collection. No midline shift seen.. <Electronically signed by Rambo Teague > 03/14/20 [id number]
--- NOTE | 2020-03-14 17:40 | IPNPDOC ---
Text Note Date of Service The patient was seen on 03/14/20. 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 Dr Stinson was consulted and she was started on Keppra for seizures. She was extubated on 03/13/2020. She was also noted to have a murmur and echocardiogram was ordered. This revealed dilated cardiomyopathy with EF of 15%. Dr. Porras was consulted and she was started on Entresto, metoprolol succinate, and spironolactone. The patient continued to do well after extubation and was d owngraded to med/surg with tele status. SUBJECTIVE: Patient was seen and examined at bedside in the ICU. She states she is feeling well. She cannot described the events that brought her to the hospital. She denies any chest pain. She denies any prior seizure activity prior to this admission. She agrees to proceed with full work up of her conditions and further treatment. OBJECTIVE: VITAL SIGNS: See below GENERAL: Alert, comfortable, in no acute distress HEENT: Normocephalic, atraumatic, EOMI, moist mucous membranes NECK: Supple, trachea midline CARDIOVASCULAR: Tachycardic with regular rhythm. Normal S1 and S2. Systolic murmur noted over the lower sternal border. RESPIRATORY: Clear to auscultation bilaterally with equal air entry bilaterally. No wheezing, rhonchi, or rales. ABDOMEN: Soft, nontender, nondistended, bowel sounds present, no masses or hepatosplenomegaly appreciated EXTREMITIES: No cyanosis or edema. Pulses 2+/4 in bilateral upper and lower extremities SKIN: [place], warm, dry NEUROLOGIC: No focal deficits appreciated PSYCHIATRIC: Mood and affect appropriate ASSESSMENT/PLAN: 69 year old female who was admitted with seizure activity, found to have dilated cardiomyopathy with new onset CHF and suspect underlying seizure disorder # Seizure activity - currently on Keppra 1000mg BID - seizure precautions - EEG and brain MRI ordered, pt previously refused these studies - Dr. Stinson consulted, appreciate input and recommendations # Aspiration pneumonia - s/p IV rocephin, continue PO Augmentin BID, day #3 of 7 of abx - required intubation during admission due to inability to protect airway - aspiration precautions # Systolic and diastolic CHF 2/2 dilated cardiomyopathy - BNP elevated 3392. Echocardiogram complete, EF 15% - Dr. Porras consulted, appreciate input and recommendations - continue Entresto, metoprolol succinate, and spironolactone # Polycythemia - Iron level low, hemochromatosis unlikely - EPO elevated, no know significant smoking history - May need further work up to r/u renal cell carcinoma given microscopic hematuria # Sinus tachycardia - continue metoprolol succinate # Dementia - per patient currently at baseline mental status DVT prophylaxis: Lovenox 40 mg daily Disposition: pending clinical improvement Code Status: Full Code VS,Fishbone, I+O VS, Fishbone, I+O Laboratory Tests 03/14/20 04:54 Vital Signs Date Time Temp Pulse Resp B/P (MAP) Pulse Ox O2 Delivery O2 Flow Rate FiO2 03/14/20 10:07 122/69 03/14/20 08:00 1.0 03/14/20 06:00 96 17 98 Nasal Cannula 03/14/20 04:00 98.6 03/13/20 09:17 40 I&O- Last 24 Hours up to 6 AM 03/14/20 06:00 Intake Total 1440.9 ml Output Total 4770 ml Balance -3329.1 ml JAKOB ZAMORANO D.O. Mar 14, 2020 16:45
[2020-03-14] MEDS: levETIRAcetam 250MG TABLET (KEPPRA) PO SCH (21:28)
[2020-03-15 06:00] VITALS: BP 134/86
[2020-03-15 06:14] LABS: BASO # 0.1 10^3/uL (0.0-0.2); BASO % 0.4 % (0.0-1.0); EOS # 0.5 10^3/uL (0.0-0.5); EOS % 3.6 % (0.0-3.0); HEMATOCRIT 50.8 % (36.0-47.0); HEMOGLOBIN 17.6 g/dl (12.0-15.5); LYMPH # 1.3 10^3/uL (1.5-5.0); LYMPH % 9.1 % (24.0-44.0); MEAN CORPUSCULAR HEMOGLOBIN 36.1 pg (27.0-33.0); MEAN CORPUSCULAR HGB CONC 34.6 g/dl (32.0-36.5); MEAN CORPUSCULAR VOLUME 104.3 fl (80.0-96.0); MONO # 1.1 10^3/uL (0.0-0.8); MONO % 7.6 % (0.0-5.0); NEUTROPHILS % 78.9 % (36.0-66.0); PLATELET COUNT, AUTOMATED 293 10^3/uL (150-450); RED BLOOD COUNT 4.87 10^6/uL (4.00-5.40)
[2020-03-15 06:39] LABS: BLOOD UREA NITROGEN 12 MG/DL (7-18); CALCIUM LEVEL 8.7 MG/DL (8.8-10.2); CARBON DIOXIDE LEVEL 29 MEQ/L (21-32); CHLORIDE LEVEL 100 MEQ/L (98-107); CREATININE FOR GFR 0.86 MG/DL (0.55-1.30); GLOMERULAR FILTRATION RATE > 60.0 (>45); GLUCOSE, FASTING 111 MG/DL (70-100); POTASSIUM SERUM 3.7 MEQ/L (3.5-5.1); SODIUM LEVEL 136 MEQ/L (136-145)
--- NOTE | 2020-03-15 07:14 | IPNPDOC ---
Text Note Date of Service The patient was seen on 03/15/20. NOTE SUBJECTIVE: Patient was seen and examined on [facility]. Patient reports that she is feeling "better than I have yet ". Overnight patient was briefly taken off of telemetry.This morning. No events other than sinus tach noted. Patient has remained compliant with her medications. She is agreeable to further investigation of her kidneys given her polycythemia and EPO findings. Continues to deny any chest pain, racing heartbeat or tachycardia. No shortness of breath discomfort. Denies any seizure episodes. OBJECTIVE: VITAL SIGNS: See below GENERAL: She is interviewed and examined in her hospital room. Patient is seated upright in bed in no acute distress. She was conversant and quite familiar with a medical history. HEENT: Normocephalic, atraumatic, EOMI, sclera nonicteric, no conjunctival pallor or injection. His membranes are moist. Face is symmetric. NECK: No appreciable JVD, trachea is midline CARDIOVASCULAR: Regular rate and rhythm, 3 out of 5 systolic murmur appreciated over inferior aspect of the left sternal border. RESPIRATORY: Clear to auscultation bilaterally both anterior and posterior lung lechuga. Fair movement throughout. No appreciable wheezing rales or rhonchi. ABDOMEN: Soft, nontender nondistended, without guarding or rigidity. Overlying skin changes. EXTREMITIES: Lower extremities are without edema or calf tenderness. Distal pulses are 2+ in the radial and posterior tibial arteries bilaterally. SKIN: No appreciable overlying skin changes. NEUROLOGIC: Patient deferred because of a number of times throughout the examination. She remains oriented to person place and time. Cranial nerves III through XII are grossly intact. PSYCHIATRIC: Mood and affect are appropriate given patient's current clinical condition. ASSESSMENT/PLAN: 69 year old female who was admitted with seizure activity, found to have dilated cardiomyopathy with new onset CHF and suspect underlying seizure disorder. Cardiology and neurology on board. Patient continues to halve polycythemia. Today we will order a CT Abd/Pelv to investigate RCC. PT/OT to eval and treat. Anticipate D/C today or tomorrow morning. # Seizure activity - Currently on Keppra 1000mg BID - Seizure precautions - Brain MRI without significant findings. - EEG pending. - Dr. Stinson consulted, appreciate input and recommendations # Aspiration pneumonia - Required intubation during admission due to inability to protect airway - Aspiration precautions - s/p IV rocephin, continue PO Augmentin BID, day #4 of 7 of abx # Systolic and diastolic CHF 2/2 dilated cardiomyopathy - BNP elevated 3392. Echocardiogram complete, EF 15% - Dr. Porras consulted, appreciate input and recommendations - Continue Entresto, metoprolol succinate, and spironolactone # Polycythemia - Iron level low, hemochromatosis unlikely - EPO elevated, no know significant smoking history - CT abd/pelvis today to investigate possibility of RCC. # Sinus tachycardia - Continue telemetry - Continue metoprolol succinate # Dementia - Per patient currently at baseline mental status DVT prophylaxis: Lovenox 40 mg daily Disposition: Pending CT Abd/Pelv PT/OT evaluation Cardiology recommendations Code Status: Full Code VS,Fishbone, I+O VS, Fishbone, I+O Laboratory Tests 03/15/20 05:45 Vital Signs Date Time Temp Pulse Resp B/P (MAP) Pulse Ox O2 Delivery O2 Flow Rate FiO2 03/15/20 06:00 98.1 90 18 134/86 (102) 97 Room Air 03/14/20 14:00 1.0 03/13/20 09:17 40 I&O- Last 24 Hours up to 6 AM 03/15/20 05:59 Intake Total 935 ml Output Total 115 ml Balance 820 ml GME ATTESTATION GME ATTESTATION My faculty preceptor for this patient encounter was physically present during the encounter and was fully available. All aspects of the patient interview, examination, medical decision making process, and medical care plan development were reviewed and approved by the faculty preceptor. The faculty preceptor is aware and concurs with the plan as stated in the body of this note and will attest to such by his/her cosignature. VILMA BLOOM DO Mar 15, 2020 07:14
[2020-03-15] MEDS: levETIRAcetam 250MG TABLET (KEPPRA) PO SCH ×2 (08:49→19:50)
[2020-03-15] MEDS: PANTOPRAZOLE 40MG TAB (PROTONIX) PO SCH (08:49)
[2020-03-15] MEDS: ENTRESTO 24-26MG TABLET (SACUBITRIL/VALSARTAN) PO SCH ×2 (08:49→19:49)
[2020-03-15] MEDS: ENOXAPARIN 40MG/0.4ML SYRINGE (J1650 PER 10MG) SC SCH (08:49)
[2020-03-15] MEDS: AUGMENTIN 875 MG TAB PO SCH ×2 (08:49→19:50)
[2020-03-15] MEDS: SPIRONOLACTONE 25 MG TAB PO SCH (08:54)
[2020-03-15] MEDS ORDERED: METOPROLOL SUCC (TopROL XL) 50MG **XL** TAB PO SCH (09:00)
[2020-03-15] MEDS ORDERED: ISOVUE-370 76% 100ML VIAL As Ordered ONE (10:02)
--- NOTE | 2020-03-15 10:42 | EEG ---
ELECTROENCEPHALOGRAM DATE: 03/13/2020 DIAGNOSIS: Seizure. EEG #: [id number] HISTORY: The patient is a 69-year-old woman who was admitted at [facility] requiring mechanical ventilation due to possible seizures. This electroencephalogram (EEG) was done to rule out epileptic potential. She is currently taking Keppra, vancomycin, ceftriaxone, etc. TECHNICAL DESCRIPTION: This digital electroencephalogram (EEG) was recorded by 21 scalp, ear and 2 electrocardiogram (EKG) electrodes and was reviewed in bipolar and referential montages following reformatting in 10-20 international electrode placement system. INTERPRETATION: The patient was noted to be agitated and confused during this electroencephalogram (EEG). This electroencephalogram (EEG) was affective by electrode artifact in several locations and motion artifact due to agitation. In the readable portions of electroencephalogram (EEG), background rhythm consisted of 5-6 Hz beta activity measuring 15-40 microvolts in amplitude, which was symmetric bilaterally. No sleep was achieved. Hyperventilation could not be performed. Photic stimulation could not be performed. Electrocardiogram (EKG) revealed sinus tachycardia. No clear focal lateralizing or epileptiform abnormalities were seen. No relevant clinical activity was noted. CONCLUSION: This technically limited electroencephalogram (EEG) in awake and drowsy states is abnormal due to the presence of generalized slowing and disorganization of background consistent with nonspecific diffuse cerebral dysfunction suggesting encephalopathy due to multiple potential causes. No clear epileptiform abnormalities were seen, although study was technically limited due to motion and electrode artifacts.
--- NOTE | 2020-03-15 11:21 | REP ---
INDICATION: r/o renal cell carcinoma. COMPARISON: None. TECHNIQUE: CT of the abdomen and pelvis is performed with IV contrast, without bowel contrast. The abdomen and pelvis are scanned during the portal venous phase of enhancement. The abdomen, not including the pelvis is scanned without IV contrast and again scanned during the delayed equilibrium phase of enhancement. FINDINGS: There are focal areas of renal cortical thinning that also demonstrate poor enhancement after IV contrast. These likely represent areas of renal cortical atrophy bilaterally. However, given the clinical concern for renal cell carcinoma however recommend renal MRI for more assurance, as small renal carcinomas can also present as areas of abnormal enhancement. There are no renal calculi. There is no hydronephrosis. There is no perinephric stranding. The adrenals are unremarkable. The visualized lung lechuga are unremarkable. The hepatic parenchyma is homogeneous on all phases of the study. The gallbladder, pancreas and spleen are unremarkable. Abdominal aorta is unremarkable. There is no periaortic adenopathy or mass. The bowel and mesentery are unremarkable. Pelvis: The bladder is collapsed. There is a small volume of air anteriorly in the bladder, possibly from recent catheterization. Uterus and adnexa are unremarkable. The pelvic bowel loops are unremarkable. There is no pelvic ascites or adenopathy. No lytic, blastic or destructive skeletal changes identified. There is degenerative disc disease throughout the lumbar spine. IMPRESSION: Findings in the kidneys are nonspecific as described above and may represent multifocal areas of renal cortical atrophy, however, renal neoplasm cannot be entirely excluded. A follow-up renal MRI might be considered for further evaluation. There is no ascites or adenopathy. No lytic, blastic or destructive skeletal changes are identified. Hepatic parenchyma is homogeneous. There is a small volume of air in the bladder, possibly from recent catheterization. <Electronically signed by Simon Young > 03/15/20 [id number]
[2020-03-15 13:30] VITALS: BP 125/73
[2020-03-15 22:00] VITALS: BP 128/77
[2020-03-16 06:00] VITALS: BP 125/75
[2020-03-16 07:09] LABS: BASO # 0.1 10^3/uL (0.0-0.2); BASO % 0.6 % (0.0-1.0); EOS # 0.7 10^3/uL (0.0-0.5); HEMATOCRIT 51.7 % (36.0-47.0); HEMOGLOBIN 17.3 g/dl (12.0-15.5); LYMPH # 1.4 10^3/uL (1.5-5.0); LYMPH % 11.4 % (24.0-44.0); MEAN CORPUSCULAR HEMOGLOBIN 35.2 pg (27.0-33.0); MEAN CORPUSCULAR HGB CONC 33.5 g/dl (32.0-36.5); MEAN CORPUSCULAR VOLUME 105.1 fl (80.0-96.0); MONO # 1.1 10^3/uL (0.0-0.8); MONO % 9.3 % (0.0-5.0); NEUTROPHILS # 8.7 10^3/uL (1.5-8.5); NEUTROPHILS % 72.3 % (36.0-66.0); PLATELET COUNT, AUTOMATED 327 10^3/uL (150-450); RED BLOOD COUNT 4.92 10^6/uL (4.00-5.40)
[2020-03-16 07:29] LABS: BLOOD UREA NITROGEN 11 MG/DL (7-18); CALCIUM LEVEL 9.6 MG/DL (8.8-10.2); CARBON DIOXIDE LEVEL 33 MEQ/L (21-32); CHLORIDE LEVEL 101 MEQ/L (98-107); CREATININE FOR GFR 0.84 MG/DL (0.55-1.30); GLOMERULAR FILTRATION RATE > 60.0 (>45); GLUCOSE, FASTING 104 MG/DL (70-100); POTASSIUM SERUM 3.8 MEQ/L (3.5-5.1); SODIUM LEVEL 139 MEQ/L (136-145)
[2020-03-16] MEDS ORDERED: METOPROLOL SUCC *XL* 25MG TAB (TopROL *XL*) PO SCH (09:00)
[2020-03-16] MEDS: ENTRESTO 24-26MG TABLET (SACUBITRIL/VALSARTAN) PO SCH (09:28)
[2020-03-16] MEDS: levETIRAcetam 250MG TABLET (KEPPRA) PO SCH (09:28)
[2020-03-16] MEDS: SPIRONOLACTONE 25 MG TAB PO SCH (09:28)
[2020-03-16] MEDS: ENOXAPARIN 40MG/0.4ML SYRINGE (J1650 PER 10MG) SC SCH (09:28)
[2020-03-16] MEDS: AUGMENTIN 875 MG TAB PO SCH (09:28)
[2020-03-16 09:30] VITALS: BP 156/101
[2020-03-16 09:34] VITALS: BP 125/84
[2020-03-16] MEDS ORDERED: AMOX875T2 PO (10:41)
[2020-03-16] MEDS ORDERED: METO1TAB32 PO (10:41)
[2020-03-16] MEDS ORDERED: ALDA25TA2 PO (10:41)
[2020-03-16] MEDS ORDERED: ENTR1TAB PO (10:41)
[2020-03-16] MEDS ORDERED: KEPP10002 PO (10:41)
--- NOTE | 2020-03-16 13:06 | DS.PDOC ---
Discharge Summary General Date of Admission Mar 12, 2020 at 07:34 Date of Discharge 03/16/2020 Attending Physician: UMM DAVIS MD Specialist/Consultants Involve: Steven Porras Specialist/Consultants Involve Dr. Kimberly Stinson MD Discharge Summary PROCEDURES PERFORMED DURING STAY: None. ADMITTING DIAGNOSES: 1. Seizure like activity 2. Acute hypoxic respiratory failure 3. Lactic acidosis 4. Leukocytosis 5. Murmur DISCHARGE DIAGNOSES: 1. Seizure disorder 2. Aspiration pneumonia 3. Dilated cardiomyopathy 4. Systolic and diastolic CHF likely nonischemic 5. Polycythemia 6. Hematuria 7. Dementia COMPLICATIONS/CHIEF COMPLAINT: Status Epilepticus. HISTORY OF PRESENT ILLNESS: 69-year-old female who presented to the emergency department with her due to weakness and seizure-like activity. The patient's provided most of the history as the patient had been intubated during evaluation in the emergency department. He has been reported that around 4:45 AM the patient had gone into the bathroom and called to the , stating she was feeling weird and possibly having a seizure. The patient's then noticed the patient become unresponsive and he witnessed seizure- like activity with her body freezing up. He did not report any shaking of the body or clonic type movements. The patient and denied any prior episodes of this to his knowledge. He denied any recent illnesses or complaints of fever, headache, neck pain. He denied any recent travel for the patient or himself. He has been denied any known drug use. The patient was not known to follow with any primary care provider. The did not. She had seen one provider in the past who had asked her to take a statin medication for high cholesterol. However, the patient did not follow up with this provider. The patient's is unaware of any known seizure disorder. When the patient presented to [facility] emergency department she was found to be hypoxic with stable vital signs. During her evaluation, she had another episode of seizure-like activity. She was intubated as she could not maintain her own airway. She was started on Keppra and received propofol for sedation. She also received Ativan during her emergency department evaluation. The patient was thought to have a possible aspiration pneumonia and was started on vancomycin and Rocephin for empiric coverage. Airconditioning Plant Operator team was called to admit the patient to the ICU. HOSPITAL COURSE: The ribbon winder team evaluated the patient and admitted her to the ICU. For her seizure-like activity. She was continued on Keppra and neurology was consulted. Dr. Stinson saw the patient and recommended EEG and brain MRI to further evaluate for seizure activity and etiology. She was maintained on a mechanical ventilator due to her hypoxemic respiratory failure and subsequent intubation. She remained intubated overnight and was able to be weaned from the vent and extubated on the second day of her admission. She remained somewhat confused on day #2 of her admission. She refused multiple tests and would not take her medications. Her respiratory status remained stable and on the third day of her admission she was able to be transferred out of the ICU. She was also much less confused on day #3 and agreed to take all of her medications and follow through with the testing that had been ordered. Considering her history of seizure like activity, aspiration pneumonia was considered a possible cause of her acute hypoxia failure and she was continued on IV antibiotics with Zosyn. She was also found to have elevated white blood cell count and lactic acid levels, supporting possible infection versus elevated due to seizure activity. After extubation, she was switched onto oral antibiotics with Augmentin and will complete a 7 day course of this. The patient was noted on examination to have a murmur which was not found in any prior documentation. The patient's did note that she has had a murmur since , but was unaware of any further workup or treatment. An echocardiogram was ordered to further evaluate. This revealed both systolic and diastolic CHF with EF of 15% and dilated cardiomyopathy. The patient was also found to have sinus tachycardia which persisted after extubation. Dr. Porras was consulted from cardiology and the patient was started on metoprolol succinate, Entresto, and spironolactone. Her heart rate improved on the beta chino medication. The patient was noted to have polycythemia and an erythropoietin level was found to be elevated. Tox screen revealed a positive result for cannabinoids. He has been denies any strong smoking history. UA also revealed hematuria on [address] of the abdomen and pelvis was ordered to evaluate for renal cell carcinoma. This did reveal some cortical thickening on the kidneys, which will need further imaging with a renal MRI. Unfortunately, this could not be completed during her evaluation. I spoke on the phone with urologist on-call, who recommended outpatient follow-up for both the renal MRI and further workup for her hematuria to likely include cystoscopy. DISCHARGE MEDICATIONS: Please see below. ALLERGIES: Please see below. PHYSICAL EXAMINATION ON DISCHARGE: VITAL SIGNS: Please see below. GENERAL: Alert, comfortable, in no acute distress HEENT: Normocephalic, atraumatic, EOMI, moist mucous membranes NECK: Supple, trachea midline CARDIOVASCULAR: Tachycardic with regular rhythm. Normal S1 and S2. Systolic murmur noted over the lower sternal border. RESPIRATORY: Clear to auscultation bilaterally with equal air entry bilaterally. No wheezing, rhonchi, or rales. ABDOMEN: Soft, nontender, nondistended, bowel sounds present, no masses or hepatosplenomegaly appreciated EXTREMITIES: No cyanosis or edema. Pulses 2+/4 in the radial and posterior tibial arteries bilaterally. SKIN: [place], warm, dry NEUROLOGIC: No focal deficits appreciated. Alert and oriented x3 to person, place, and time. PSYCHIATRIC: Mood and affect appropriate LABORATORY DATA: Please see below. IMAGING: (impressions per radiologist report) - Head CT Small-vessel ischemic change, without an acute cortical infarct. - CXR Termination of endotracheal tube in the right mainstem bronchus, requiring repositioning. - CXR Small focal infiltrate inferiorly in the left lung. The endotracheal tube and nasogastric tube remain in satisfactory positions. - CXR The endotracheal tube and nasogastric tube have been removed. The small infiltrate identified previously in the left lung inferiorly has resolved. There is a new zone of discoid atelectasis in the left mid lung. There is atelectasis in the lung bases bilaterally. The upper lung zones are clear. Cardiac size is normal. - Brain MRI No evidence of acute ischemia, mass, hemorrhage or extra-axial fluid collection. No midline shift seen. - CT abdomen/pelvis Findings in the kidneys are nonspecific as described above and may represent multifocal areas of renal cortical atrophy, however, renal neoplasm cannot be entirely excluded. A follow-up renal MRI might be considered for further evaluation. There is no ascites or adenopathy. No lytic, blastic or destructive skeletal changes are identified. Hepatic parenchyma is homogeneous. There is a small volume of air in the bladder, possibly from recent catheterization. PROGNOSIS: Fair ACTIVITY: As tolerated. DIET: DASH diet DISCHARGE PLAN/DISPOSITION: Home with close outpatient follow up DISCHARGE INSTRUCTIONS: Follow-up with your PCP within 1 week. Follow-up with cardiology within 1 week. Follow up with neurology in 2 weeks. Referral to urology for microscopic hematuria for further work up. You will need a renal MRI to rule out cancer on your kidneys. This can be ordered by your PCP or Urology. Please take all medications as prescribed. Please complete the course of antibiotics for aspiration pneumonia. If your symptoms return or your condition worsens, please call your PCP or return to the ED for further evaluation. ITEMS TO FOLLOWUP ON ON OUTPATIENT: 1. Polycythemia with elevated EPO levels - needs renal MRI 2. Hematuria - needs urology referral 3. Cardiomyopathy - f/u Dr. Porras 4. Seizure disorder - f/u Dr. Stinson 5. General medical care - establish with a PCP DISCHARGE CONDITION: Stable. TIME SPENT ON DISCHARGE: Greater than 35 minutes. Attending note: Patient seen and examined independently. Agree with resident's note. Vital Signs/I&Os Vital Signs Date Time Temp Pulse Resp B/P (MAP) Pulse Ox O2 Delivery O2 Flow Rate FiO2 03/16/20 09:34 125/84 (98) 03/16/20 09:30 110 03/16/20 06:00 97.7 18 93 Room Air 03/14/20 14:00 1.0 03/13/20 09:17 40 I&O- Last 24 Hours up to 6 AM 03/16/20 06:00 Intake Total 1490 ml Output Total 0 ml Balance 1490 ml Laboratory Data Labs 24H Laboratory Tests 2 03/16/20 06:21: Immature Granulocyte % (Auto) 0.4, Neutrophils (%) (Auto) 72.3H, Lymphocytes (%) (Auto) 11.4L, Monocytes (%) (Auto) 9.3H, Eosinophils (%) (Auto) 6.0H, Basophils (%) (Auto) 0.6, Neutrophils # (Auto) 8.7H, Lymphocytes # (Auto) 1.4L, Monocytes # (Auto) 1.1H, Eosinophils # (Auto) 0.7H, Basophils # (Auto) 0.1, Nucleated Red Blood Cells % (auto) 0.0, Anion Gap 5L, Glomerular Filtration Rate > 60.0, Calcium Level 9.6 CBC/BMP Laboratory Tests 03/16/20 06:21 Microbiology Microbiology 03/12/20 Blood Culture - Preliminary, Resulted No Growth after 72 hours. All specime... 03/12/20 Blood Culture - Preliminary, Resulted No Growth after 72 hours. All specime... Discharge Medications Scheduled Amoxicillin/Potassium Clav (Amox-Clav 875-125 mg Tablet) 1 Each Tablet, 875 MG PO BID Levetiracetam (Keppra) 1,000 Mg Tablet, 1 TAB PO BID Metoprolol Succinate (Metoprolol Succinate) 25 Mg Tab.er.24h, 75 MG PO DAILY Take 3 tabs daily Sacubitril/Valsartan (Entresto 24 mg-26 mg Tablet) 1 Each Tablet, 1 TAB PO BID Spironolactone (Aldactone) 25 Mg Tablet, 25 MG PO QAM Allergies Coded Allergies: Sulfa (Sulfonamide Antibiotics) (Verified Allergy, Severe, Anaphylaxis, 03/12/20) JAKOB ZAMORANO D.O. Mar 16, 2020 11:26 UMM DAVIS MD Mar 16, 2020 18:19
== END 2020-03-16 13:34 | disposition home health service (06) | DRG 100 ==
LOC: M ED 05:31 → M ED INP 07:34 → M ICU 10:19 → M MSPAV 03-14 17:32
PROVIDERS: ADMIT Internal Medicine Pulmonary Disease; ATTEND Internal Medicine
PROC: 0BH17EZ Insertion of Endotracheal Airway into Trachea, Via Natural or Artificial Opening (ICD-10-PCS; principal; 2020-03-12)
PROC: 5A1935Z Respiratory Ventilation, Less than 24 Consecutive Hours (ICD-10-PCS; 2020-03-12)
DX: G40.411 Other generalized epilepsy and epileptic syndromes, intractable, with status epilepticus (principal); J69.0 Pneumonitis due to inhalation of food and vomit; I50.41 Acute combined systolic (congestive) and diastolic (congestive) heart failure; E87.2 Acidosis; I42.0 Dilated cardiomyopathy; E78.5 Hyperlipidemia, unspecified; R01.1 Cardiac murmur, unspecified; D75.1 Secondary polycythemia; R00.0 Tachycardia, unspecified; I35.1 Nonrheumatic aortic (valve) insufficiency; F03.90 Unspecified dementia, unspecified severity, without behavioral disturbance, psychotic disturbance, mood disturbance, and anxiety; Z88.2 Allergy status to sulfonamides; Z20.828 Contact with and (suspected) exposure to other viral communicable diseases

== ENCOUNTER → 2020-04-16 | Outpatient (REF) | payer MEDICARE, OTHER ==
[~2020-04-16] MED LIST: ALDA25TA2 PO; ALEV220T22 PO; AMOX875T2 PO; ENTR1TAB PO; KEPP10002 PO; METO1TAB32 PO
[2020-04-16 18:05] LABS: BASO # 0.1 10^3/uL (0.0-0.2); BASO % 0.6 % (0.0-1.0); EOS # 0.7 10^3/uL (0.0-0.5); EOS % 5.9 % (0.0-3.0); HEMOGLOBIN 17.6 g/dl (12.0-15.5); LYMPH % 16.2 % (24.0-44.0); MEAN CORPUSCULAR HEMOGLOBIN 34.2 pg (27.0-33.0); MEAN CORPUSCULAR HGB CONC 33.2 g/dl (32.0-36.5); MEAN CORPUSCULAR VOLUME 102.9 fl (80.0-96.0); MONO # 1.1 10^3/uL (0.0-0.8); MONO % 8.6 % (0.0-5.0); NEUTROPHILS # 8.5 10^3/uL (1.5-8.5); NEUTROPHILS % 68.4 % (36.0-66.0); PLATELET COUNT, AUTOMATED 342 10^3/uL (150-450); RED BLOOD COUNT 5.15 10^6/uL (4.00-5.40); WHITE BLOOD COUNT 12.5 10^3/uL (4.0-10.0)
[2020-04-16 18:31] LABS: ALBUMIN 3.9 GM/DL (3.2-5.2); BILIRUBIN,TOTAL 0.5 MG/DL (0.2-1.0); CALCIUM LEVEL 9.4 MG/DL (8.8-10.2); CREATININE FOR GFR 1.14 MG/DL (0.55-1.30); GLOMERULAR FILTRATION RATE 50.6 (>45); POTASSIUM SERUM 4.9 MEQ/L (3.5-5.1); TOTAL PROTEIN 7.2 GM/DL (6.4-8.2)
== END ==
LOC: M SFHCADAM 14:12
PROVIDERS: ATTEND Physician Assistant Medical
DX: I42.9 Cardiomyopathy, unspecified (principal); G40.909 Epilepsy, unspecified, not intractable, without status epilepticus; I50.82 Biventricular heart failure; R31.29 Other microscopic hematuria

== ENCOUNTER → 2020-04-18 | Outpatient (CLI) | payer MEDICARE, OTHER ==
[~2020-04-18] MED LIST changes: +PROHANCE 279.3MG/ML 5ML VIAL As Ordered ONE
--- NOTE | 2020-04-18 14:46 | REP ---
INDICATION: MICRO HEMATURIA. COMPARISON: CT 03/15/2020. TECHNIQUE: Multiple sequences obtained in the axial coronal planes prior to and following the intravenous administration of 6 mL ProHance. FINDINGS: The visualized liver there are few tiny subcentimeter cysts. Visualized spleen is grossly unremarkable. There is mild adrenal gland thickening. Pancreas is unremarkable. There is no biliary dilatation. There is a tiny cyst in the upper pole of the right kidney. There is mild diffuse bilateral cortical atrophy of the kidneys. There is no suspicious renal mass. There is no hydronephrosis bilaterally. IMPRESSION: Tiny subcentimeter cyst upper pole right kidney. No suspicious renal mass bilaterally. Mild bilateral cortical atrophy. <Electronically signed by Simon Taylor > 04/18/20 [id number]
== END ==
LOC: M RAD 12:49
PROVIDERS: ATTEND Physician Assistant Medical
DX: N28.1 Cyst of kidney, acquired (principal); R31.29 Other microscopic hematuria
CPT/HCPCS: 74183; A9576

== ENCOUNTER 2020-07-15 03:44 | Observation (INO) | payer MEDICARE, OTHER ==
[~2020-07-15] VITALS: Ht 177.8 cm; Wt 66.7 kg
[~2020-07-15 03:44] MED LIST changes: -PROHANCE 279.3MG/ML 5ML VIAL As Ordered ONE
[2020-07-15] MEDS ORDERED: LORazepam 2 MG/ML VIAL IV STA (03:50)
[2020-07-15] MEDS ORDERED: LORazepam 2 MG/ML VIAL As Ordered ONE (03:50)
[2020-07-15] MEDS ORDERED: levETIRAcetam INJection 1,000 MG in D5W 100 ML IV ONE (03:50)
[2020-07-15 04:04] LABS: HEMATOCRIT 47.1 % (36.0-47.0); HEMOGLOBIN 15.4 g/dl (12.0-15.5); MEAN CORPUSCULAR HEMOGLOBIN 34.7 pg (27.0-33.0); MEAN CORPUSCULAR HGB CONC 32.7 g/dl (32.0-36.5); MEAN CORPUSCULAR VOLUME 106.1 fl (80.0-96.0); PLATELET COUNT, AUTOMATED 544 10^3/uL (150-450); RED BLOOD COUNT 4.44 10^6/uL (4.00-5.40); WHITE BLOOD COUNT 15.7 10^3/uL (4.0-10.0)
--- NOTE | 2020-07-15 04:19 | REPVR ---
PROCEDURE INFORMATION: Exam: CT Head Without Contrast Exam date and time: 07/15/2020 4:00 AM Age: 69 years old Clinical indication: Pain; Headache; Additional info: Multiple seizures TECHNIQUE: Imaging protocol: Computed tomography of the head without contrast. Radiation optimization: All CT scans at this facility use at least one of these dose optimization techniques: automated exposure control; mA and/or kV adjustment per patient size (includes targeted exams where dose is matched to clinical indication); or iterative reconstruction. COMPARISON: 1. CT Head without contrast 2020-03-12 06:03 2. MRI-Brain without Contrast 2020-03-14 16:24 FINDINGS: Brain: Diffuse moderate cerebral age related volume loss. Moderate patchy low attenuation in the white matter compatible with moderate chronic small vessel ischemic disease. No midline shift, mass, fluid collection, or evidence of hemorrhage. Cerebral ventricles: Ventricular enlargement proportional to volume loss. Bones/joints: Unremarkable. No acute fracture. Paranasal sinuses: Visualized sinuses are unremarkable. No fluid levels. Mastoid air cells: Visualized mastoid air cells are well aerated. Vasculature: Coarse atherosclerotic calcifications in the vertebral and internal carotid arteries. Soft tissues: Unremarkable. IMPRESSION: Moderate involutional changes, no acute intracranial abnormality. Electronically signed by: Steven Renner On 07/15/2020 04:20:05 AM
[2020-07-15 05:13] LABS: AMPHETAMINES LEVEL URINE NEGATIVE (NEGATIVE); BARBITURATES URINE NEGATIVE (NEGATIVE); BENZODIAZEPINES URINE NEGATIVE (NEGATIVE); CANNABINOIDS URINE POSITIVE (NEGATIVE); COCAINE METABOLITE URINE NEGATIVE (NEGATIVE); METHADONE URINE NEGATIVE (NEGATIVE); OPIATES URINE NEGATIVE (NEGATIVE); PHENCYCLIDINE URINE NEGATIVE (NEGATIVE)
[2020-07-15 05:19] LABS: ALT/SGPT 14 U/L (12-78); BILIRUBIN,TOTAL 0.3 MG/DL (0.2-1.0); BLOOD UREA NITROGEN 21 MG/DL (7-18); CALCIUM LEVEL 9.2 MG/DL (8.8-10.2); CARBON DIOXIDE LEVEL 22 MEQ/L (21-32); CHLORIDE LEVEL 96 MEQ/L (98-107); CK-MB VALUE MASS 1.3 NG/ML (<3.6); CPK CREATINE PHOSPHOKINASE 57 U/L (26-192); CREATININE FOR GFR 1.57 MG/DL (0.55-1.30); FREE T4 1.22 NG/DL (0.76-1.46); GLUCOSE, FASTING 204 MG/DL (70-100); MB/CK RELATIVE INDEX 2.28 (< OR =4); POTASSIUM SERUM 4.8 MEQ/L (3.5-5.1); SODIUM LEVEL 134 MEQ/L (136-145); TOTAL PROTEIN 7.7 GM/DL (6.4-8.2); TROPONIN I < 0.02 NG/ML (< 0.10)
[2020-07-15] MEDS ORDERED: NS 1,000 ML IV ONE (05:30)
--- NOTE | 2020-07-15 06:34 | ECGEPIP ---
[facility] - ED Test Date: 2020-07-15 Pat Name: MCKENZIE OSEI Department: Room: - Gender: Female Teacher Tutor: Shirley HOWARD : 1950 Requested By: Hill Brito Order Number: [id number] Reading MD: Mars Matthew Measurements Intervals [place] Rate: 117 P: 78 GA: 144 QRS: -43 QRSD: 74 T: 84 QT: 338 QTc: 471 Interpretive Statements Sinus tachycardia with premature atrial complexes Left axis deviation NSTTW ABNORMALITY(S) BASELINE ARTIFACT AFFECTS INTERPRETATION Electronically Signed on 07-15-2020 6:34:00 EDT by Mars Matthew
[2020-07-15] MEDS ORDERED: NS 1,000 ML IV SCH (07:20)
[2020-07-15] MEDS ORDERED: ENTR1TAB PO (07:51)
[2020-07-15] MEDS ORDERED: ALEV220T22 PO (07:51)
[2020-07-15] MEDS ORDERED: SPIR-10 PO (07:51)
[2020-07-15] MEDS ORDERED: METO1TAB32 PO (07:51)
[2020-07-15 08:43] LABS: RSV AMPLIFICATION NEGATIVE (NEGATIVE)
[2020-07-15] MEDS: SPIRONOLACTONE 25 MG TAB PO SCH (09:00)
[2020-07-15] MEDS: ENTRESTO 24-26MG TABLET (SACUBITRIL/VALSARTAN) PO SCH ×2 (09:00→19:57)
[2020-07-15 10:59] VITALS: BP 122/76
[2020-07-15 11:00] LABS: PROLACTIN 27.8 NG/ML
[2020-07-15] MEDS ORDERED: LORazepam 2 MG/ML VIAL IV PRN (11:55)
[2020-07-15] MEDS: METOPROLOL SUCC *XL* 25MG TAB (TopROL *XL*) PO SCH ×2 (15:29→19:58)
[2020-07-15 15:32] VITALS: BP 113/72
[2020-07-15] MEDS: levETIRAcetam INJection 1,000 MG in D5W 100 ML IV SCH (15:34)
[2020-07-15 15:39] VITALS: BP 188/74
[2020-07-15 20:00] VITALS: BP 128/71
[2020-07-16] VITALS: BP 110/63
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
[2020-07-16 04:00] VITALS: BP 120/77
[2020-07-16] MEDS: levETIRAcetam INJection 1,000 MG in D5W 100 ML IV SCH (04:06)
[2020-07-16 06:21] LABS: BASO # 0.1 10^3/uL (0.0-0.2); BASO % 0.4 % (0.0-1.0); EOS # 0.2 10^3/uL (0.0-0.5); EOS % 1.5 % (0.0-3.0); HEMATOCRIT 40.2 % (36.0-47.0); HEMOGLOBIN 13.6 g/dl (12.0-15.5); LYMPH # 1.4 10^3/uL (1.5-5.0); LYMPH % 8.7 % (24.0-44.0); MEAN CORPUSCULAR HGB CONC 33.8 g/dl (32.0-36.5); MEAN CORPUSCULAR VOLUME 100.5 fl (80.0-96.0); MONO % 6.2 % (2.0-8.0); NEUTROPHILS # 13.1 10^3/uL (1.5-8.5); NEUTROPHILS % 82.6 % (36.0-66.0); PLATELET COUNT, AUTOMATED 432 10^3/uL (150-450); WHITE BLOOD COUNT 15.9 10^3/uL (4.0-10.0)
[2020-07-16 06:45] LABS: BLOOD UREA NITROGEN 14 MG/DL (7-18); CALCIUM LEVEL 9.3 MG/DL (8.8-10.2); CARBON DIOXIDE LEVEL 27 MEQ/L (21-32); CHLORIDE LEVEL 104 MEQ/L (98-107); CREATININE FOR GFR 0.98 MG/DL (0.55-1.30); GLOMERULAR FILTRATION RATE > 60.0 (>45); GLUCOSE, FASTING 104 MG/DL (70-100); POTASSIUM SERUM 4.2 MEQ/L (3.5-5.1); SODIUM LEVEL 138 MEQ/L (136-145)
[2020-07-16 07:24] VITALS: BP 106/63
[2020-07-16] MEDS: ENTRESTO 24-26MG TABLET (SACUBITRIL/VALSARTAN) PO SCH ×2 (08:08→20:04)
[2020-07-16] MEDS: SPIRONOLACTONE 25 MG TAB PO SCH (08:08)
[2020-07-16] MEDS: ENOXAPARIN 40MG/0.4ML SYRINGE (J1650 PER 10MG) SC SCH (08:08)
[2020-07-16] MEDS: METOPROLOL SUCC *XL* 25MG TAB (TopROL *XL*) PO SCH ×3 (08:08→20:04)
--- NOTE | 2020-07-16 08:39 | REP ---
INDICATION: cough after seizure ? aspiration COMPARISON: 03/14/2020 TECHNIQUE: Portable AP view of the chest FINDINGS: Mediastinum and cardiac silhouette are within normal limits and stable. The lung lechuga demonstrate diffuse chronic interstitial changes relatively similar to prior examination. No discrete focal consolidation, obvious effusion, or pneumothorax. Skeletal structures are stable. IMPRESSION: Chronic stable changes similar to prior examination. No focal consolidation or effusion. <Electronically signed by Jovani Lama > 07/16/20 [id number]
[2020-07-16 12:00] VITALS: BP 126/80
--- NOTE | 2020-07-16 14:44 | IPNPDOC ---
Date Seen The patient was seen on 07/16/20. Progress Note SUBJECTIVE: patient was seen and examined at bedside. No acute events overnight. Patient appears to be confused as to why she is in hospital, but she she is oriented to person and place. Per RN, no seizure activity overnight. Denies headache, chest pain, shortness of breath, weakness, fevers and chills. OBJECTIVE PHYSICAL EXAMINATION: VITAL SIGNS: please see below General: NAD, comfortable HEENT: PERRLA, EOMI, sclerae clear Neck: supple, normal ROM, no JVD Respiratory: lungs CTAB, no wheeze, no rales, no crackles CVS: RRR, normal S1, S2, no murmurs Abdo: soft, no masses, no hepatosplenomegaly, BS+, no rebound tenderness Extremities: no edema, pulses 2+ MSK: no joint deformities, normal ROM Neuro: no focal neuro deficits, moving all 4 extremities, CN2-12 intact. Strength 5/5 in all 4 extremities. No nystagmus. Psych: calm, cooperative, AAO x 3 LABORATORY DATA, IMAGING STUDIES, MICROBIOLOGY: Please see below. DVT prophylaxis ordered?: Y ASSESSMENT AND PLAN:69 year old female with history of dilated cardiomyopathy, systolic and diastolic CHF with ef of 15%, seizure first episode in 2019, mitral stenosis and MVP, possible dementia had a seizure at around 2:15 am. As per she had gone to the bathroom and then Patient's then heard the noise of the electric tooth brush he saw her standing with both hands stiffly bend at the elbow towards her chest with the brush clutched in one not responding. He caught hold of her and slowly lowered her to the floor, she was not responsive then started having a seizure. She continued to be post ictal for several hours in the ED. She was admitted for metabolic encephalopathy after Seizure with possible underlying dementia. PROBLEMS: Seizure. - h/o status epilepticus requiring intubation and mechanical ventilation in March 2020. -restarted keppra 1000 iv bid on admission - I discussed with Dr. Stinson, patient had never followed up - recommends stopping keppra due to c/o dizziness and sedation - recommended switching to depakote DR 250 mg qam and 500 mg qhs - seizure precautions. Acute metabolic encephalopathy - due to seizure - sitter if needed Lactic acidosis, likely 2/2 seizure - resolved - avoid further IVF due to hx of severe systolic and diastolic CHF with an EF of 15% Chronic systolic and diastolic CHF due to dilated cardiomyopathy - EF of 15% - follows with cardiology - continue Entresto and metoprolol as per home dosage. SYL vs CKD - likely due to cardiorenal syndrome and diuresis. - Cr normalized s/p IVF - will continue to monitor. VS, I&O, 24H, Fishbone Vital Signs/I&O Vital Signs Date Time Temp Pulse Resp B/P (MAP) Pulse Ox O2 Delivery O2 Flow Rate FiO2 07/16/20 12:00 97.7 109 18 126/80 (95) 93 07/16/20 07:24 Room Air 07/15/20 07:00 2.0 I&O- Last 24 Hours up to 6 AM 07/16/20 06:00 Intake Total 2121 ml Output Total 0 ml Balance 2121 ml Laboratory Data 24H LABS Laboratory Tests 2 07/16/20 05:37: Immature Granulocyte % (Auto) 0.6, Neutrophils (%) (Auto) 82.6H, Lymphocytes (%) (Auto) 8.7L, Monocytes (%) (Auto) 6.2, Eosinophils (%) (Auto) 1.5, Basophils (%) (Auto) 0.4, Neutrophils # (Auto) 13.1H, Lymphocytes # (Auto) 1.4L, Monocytes # (Auto) 1.0H, Eosinophils # (Auto) 0.2, Basophils # (Auto) 0.1, Nucleated Red Blood Cells % (auto) 0.0, Anion Gap 7L, Glomerular Filtration Rate > 60.0, Calcium Level 9.3 07/16/20 08:18: Lactic Acid Level 1.5 CBC/BMP Laboratory Tests 07/16/20 05:37 ISABEL LEWIS MD Jul 16, 2020 14:44
[2020-07-16 16:00] VITALS: BP 128/74
[2020-07-16 20:00] VITALS: BP 111/69
[2020-07-16] MEDS ORDERED: DIVALPROEX 500 MG TAB PO SCH (21:00)
[2020-07-17] VITALS: BP 129/83
[2020-07-17 03:02] VITALS: BP 129/74
[2020-07-17 05:31] LABS: BASO # 0.1 10^3/uL (0.0-0.2); BASO % 0.6 % (0.0-1.0); EOS # 0.6 10^3/uL (0.0-0.5); EOS % 5.1 % (0.0-3.0); HEMATOCRIT 40.6 % (36.0-47.0); HEMOGLOBIN 13.7 g/dl (12.0-15.5); LYMPH # 1.9 10^3/uL (1.5-5.0); LYMPH % 17.9 % (24.0-44.0); MEAN CORPUSCULAR HEMOGLOBIN 34.3 pg (27.0-33.0); MEAN CORPUSCULAR HGB CONC 33.7 g/dl (32.0-36.5); MEAN CORPUSCULAR VOLUME 101.8 fl (80.0-96.0); MONO # 0.8 10^3/uL (0.0-0.8); MONO % 6.9 % (2.0-8.0); NEUTROPHILS # 7.5 10^3/uL (1.5-8.5); NEUTROPHILS % 69.1 % (36.0-66.0); PLATELET COUNT, AUTOMATED 406 10^3/uL (150-450); RED BLOOD COUNT 3.99 10^6/uL (4.00-5.40); WHITE BLOOD COUNT 10.9 10^3/uL (4.0-10.0)
[2020-07-17 05:50] LABS: CALCIUM LEVEL 9.1 MG/DL (8.8-10.2); CREATININE FOR GFR 1.07 MG/DL (0.55-1.30); GLOMERULAR FILTRATION RATE 54.5 (>45); POTASSIUM SERUM 4.6 MEQ/L (3.5-5.1)
[2020-07-17 08:00] VITALS: BP_SYST 127; BP_SYST 130; BP_DIAS 72; BP_DIAS 80
[2020-07-17] MEDS: ENTRESTO 24-26MG TABLET (SACUBITRIL/VALSARTAN) PO SCH (08:52)
[2020-07-17] MEDS: METOPROLOL SUCC *XL* 25MG TAB (TopROL *XL*) PO SCH ×2 (08:53→17:04)
[2020-07-17] MEDS: SPIRONOLACTONE 25 MG TAB PO SCH (08:54)
[2020-07-17] MEDS: ENOXAPARIN 40MG/0.4ML SYRINGE (J1650 PER 10MG) SC SCH (08:54)
[2020-07-17] MEDS ORDERED: DIVALPROEX 250 MG TAB PO SCH (09:00)
[2020-07-17] MEDS ORDERED: SLF 3 ML SYR IV PRN (09:55)
[2020-07-17 12:00] VITALS: BP 127/83
[2020-07-17] MEDS ORDERED: SLF 3 ML SYR IV SCH (14:00)
[2020-07-17] MEDS ORDERED: DEPA250T32 PO (15:01)
[2020-07-17] MEDS ORDERED: DEPA1TAB3 PO (15:01)
[2020-07-17 16:00] VITALS: BP 122/74
[2020-07-17 17:04] VITALS: BP 122/74
--- NOTE | 2020-07-18 10:29 | EEG ---
ELECTROENCEPHALOGRAM DATE: 07/17/2020 DIAGNOSIS: Seizures. EEG# [id number]. REFERRING PHYSICIAN: Trice Sena MD. HISTORY: Patient is a 69-year-old woman with history of dilated cardiomyopathy and possible dementia who had a seizure. She had altered mental status after her seizure. She was admitted at [facility] in March 2020, due to status epilepticus. She is currently on Keppra, which was changed to Depakote, Ativan, metoprolol, etc. TECHNICAL DESCRIPTION: This digital EEG was recorded by 21-scalp, ear, and two EKG electrodes and was reviewed in bipolar and referential montages following reformatting in 10-20 international electrode placement system. INTERPRETATION: Patient was noted to be in awake and drowsy states during this EEG. Resting and awake background rhythm consisted of 9 Hz alpha activity measuring 15-30 microvolts in amplitude, which was symmetric and reactive to eye opening. Attenuation of posterior dominant rhythm was seen during transition into drowsiness. No sleep was achieved. Hyperventilation could not be performed. Photic stimulation remained unremarkable. EKG revealed normal sinus rhythm. Left greater than right temporal theta and delta slowing was noted during wakefulness and drowsiness. No clear epileptiform abnormalities were seen. No relevant clinical activity was noted. CONCLUSION: This EEG in awake and drowsy states is abnormal due to presence of left greater than right intermittent theta and delta activity, consistent with focal cortical structural or functional abnormality. Clinical correlation is recommended.
== END 2020-07-17 17:45 | disposition home or self-care (01) ==
LOC: M ED 03:44 → M ED INP 03:45 → ENRESERV 09:42 → M PCU 10:26
PROVIDERS: ADMIT Internal Medicine Nephrology; ATTEND Internal Medicine Nephrology
DX: R56.9 Unspecified convulsions (principal); G93.41 Metabolic encephalopathy; E87.2 Acidosis; R41.82 Altered mental status, unspecified; I50.42 Chronic combined systolic (congestive) and diastolic (congestive) heart failure; I42.0 Dilated cardiomyopathy; N17.9 Acute kidney failure, unspecified; I34.2 Nonrheumatic mitral (valve) stenosis; I34.1 Nonrheumatic mitral (valve) prolapse; D45 Polycythemia vera; Z88.2 Allergy status to sulfonamides; Z88.8 Allergy status to other drugs, medicaments and biological substances; Z79.899 Other long term (current) drug therapy
CPT/HCPCS: 36415; 70450; 71045; 80048; 80053; 80307; 81001; 82550; 82553; 83605; 84146; 84439; 84443; 84484; 85025; 85027; 87631; 93005; 95819; 96361; 96365; 96367; 96372; 96375; 96376; 97161; 97165; 99285; G0378; J1650; J1953; J2060

== ENCOUNTER → 2021-04-28 | Outpatient (REF) | payer MEDICARE, OTHER ==
[~2021-04-28] MED LIST changes: +DEPA1TAB3 PO; +DEPA250T32 PO; +SPIR-10 PO
[2021-04-28 13:48] LABS: BASO # 0.1 10^3/uL (0.0-0.2); BASO % 0.5 % (0.0-1.0); EOS # 0.5 10^3/uL (0.0-0.5); EOS % 5.1 % (0.0-3.0); HEMOGLOBIN 12.8 g/dl (12.0-15.5); LYMPH # 1.8 10^3/uL (1.5-5.0); LYMPH % 18.5 % (24.0-44.0); MEAN CORPUSCULAR HEMOGLOBIN 34.2 pg (27.0-33.0); MEAN CORPUSCULAR HGB CONC 32.8 g/dl (32.0-36.5); MEAN CORPUSCULAR VOLUME 104.3 fl (80.0-96.0); MONO # 0.9 10^3/uL (0.0-0.8); NEUTROPHILS # 6.6 10^3/uL (1.5-8.5); NEUTROPHILS % 66.6 % (36.0-66.0); PLATELET COUNT, AUTOMATED 322 10^3/uL (150-450); RED BLOOD COUNT 3.74 10^6/uL (4.00-5.40); WHITE BLOOD COUNT 9.8 10^3/uL (4.0-10.0)
[2021-04-28 14:05] LABS: MALB URINE SIEMENS 31.8 MG/L; MAU/CREAT RATIO 27.4 MCG/MG (0.0-30.0)
[2021-04-28 14:11] LABS: HEMOGLOBIN A1c 5.2 %
[2021-04-28 14:38] LABS: ALBUMIN 3.3 GM/DL (3.2-5.2); BILIRUBIN,TOTAL 0.3 MG/DL (0.2-1.0); CHOLESTEROL RISK RATIO 2.75 (<5); CREATININE FOR GFR 1.34 MG/DL (0.55-1.30); GLOMERULAR FILTRATION RATE 41.9 (>45); POTASSIUM SERUM 4.6 MEQ/L (3.5-5.1); THYROID STIMULATING HORMONE 1.49 uIU/ML (0.358-3.740); TOTAL PROTEIN 6.7 GM/DL (6.4-8.2)
== END ==
LOC: M SFHCADAM 11:20
PROVIDERS: ATTEND Physician Assistant Medical
DX: Z00.00 Encounter for general adult medical examination without abnormal findings (principal); I42.9 Cardiomyopathy, unspecified; G40.909 Epilepsy, unspecified, not intractable, without status epilepticus; I50.82 Biventricular heart failure; R31.29 Other microscopic hematuria; F03.90 Unspecified dementia, unspecified severity, without behavioral disturbance, psychotic disturbance, mood disturbance, and anxiety

== ENCOUNTER → 2021-04-28 | Outpatient (REF) | payer MEDICARE, OTHER ==
[2021-04-28 14:18] LABS: ALBUMIN 3.4 GM/DL (3.2-5.2); BILIRUBIN,TOTAL 0.3 MG/DL (0.2-1.0); CALCIUM LEVEL 9.1 MG/DL (8.8-10.2); CREATININE FOR GFR 1.34 MG/DL (0.55-1.30); GLOMERULAR FILTRATION RATE 41.9 (>45); MAGNESIUM LEVEL 2.2 MG/DL (1.8-2.4); POTASSIUM SERUM 4.5 MEQ/L (3.5-5.1); TOTAL PROTEIN 6.8 GM/DL (6.4-8.2)
== END ==
LOC: M LABDRWAD 12:49
PROVIDERS: ATTEND Physician Assistant
DX: I50.22 Chronic systolic (congestive) heart failure (principal)

== ENCOUNTER → 2021-04-28 | Outpatient (REF) | payer MEDICARE, OTHER ==
[2021-04-28 13:46] LABS: BASO % 0.4 % (0.0-1.0); EOS # 0.6 10^3/uL (0.0-0.5); EOS % 5.9 % (0.0-3.0); HEMOGLOBIN 12.8 g/dl (12.0-15.5); LYMPH # 1.8 10^3/uL (1.5-5.0); LYMPH % 17.9 % (24.0-44.0); MEAN CORPUSCULAR HEMOGLOBIN 34.5 pg (27.0-33.0); MEAN CORPUSCULAR HGB CONC 32.8 g/dl (32.0-36.5); MEAN CORPUSCULAR VOLUME 105.1 fl (80.0-96.0); MONO # 0.9 10^3/uL (0.0-0.8); MONO % 8.7 % (2.0-8.0); NEUTROPHILS # 6.8 10^3/uL (1.5-8.5); NEUTROPHILS % 66.8 % (36.0-66.0); PLATELET COUNT, AUTOMATED 315 10^3/uL (150-450); RED BLOOD COUNT 3.71 10^6/uL (4.00-5.40); WHITE BLOOD COUNT 10.1 10^3/uL (4.0-10.0)
[2021-04-28 14:32] LABS: ALBUMIN 3.3 GM/DL (3.2-5.2); BILIRUBIN,TOTAL 0.2 MG/DL (0.2-1.0); CREATININE FOR GFR 1.35 MG/DL (0.55-1.30); GLOMERULAR FILTRATION RATE 41.5 (>45); POTASSIUM SERUM 4.5 MEQ/L (3.5-5.1); TOTAL PROTEIN 6.6 GM/DL (6.4-8.2); VALPROIC ACID (DEPAKOTE) 79.4 UG/ML (50.0-100.0)
== END ==
LOC: M LABDRWAD 12:50
PROVIDERS: ATTEND Psychiatry & Neurology Neurology
DX: R56.9 Unspecified convulsions (principal)

== ENCOUNTER → 2022-05-20 | Outpatient (REF) | payer MEDICARE, OTHER ==
[2022-05-20 17:47] LABS: BASO # 0.1 10^3/uL (0.0-0.2); BASO % 0.7 % (0.0-1.0); EOS # 0.5 10^3/uL (0.0-0.5); EOS % 5.2 % (0.0-3.0); HEMATOCRIT 42.8 % (36.0-47.0); HEMOGLOBIN 13.4 g/dl (12.0-15.5); LYMPH # 1.8 10^3/uL (1.5-5.0); LYMPH % 17.5 % (24.0-44.0); MEAN CORPUSCULAR HEMOGLOBIN 32.9 pg (27.0-33.0); MEAN CORPUSCULAR HGB CONC 31.3 g/dl (32.0-36.5); MEAN CORPUSCULAR VOLUME 105.2 fl (80.0-96.0); MONO # 1.1 10^3/uL (0.0-0.8); MONO % 10.6 % (2.0-8.0); NEUTROPHILS # 6.6 10^3/uL (1.5-8.5); NEUTROPHILS % 65.7 % (36.0-66.0); PLATELET COUNT, AUTOMATED 258 10^3/uL (150-450); RED BLOOD COUNT 4.07 10^6/uL (4.00-5.40)
[2022-05-20 18:26] LABS: ALBUMIN 3.1 G/DL (3.2-5.2); BILIRUBIN,TOTAL 0.4 MG/DL (0.3-1.2); CALCIUM LEVEL 9.2 MG/DL (8.3-10.6); CREATININE FOR GFR 1.66 MG/DL (0.55-1.30); GLOMERULAR FILTRATION RATE 32.6 (>45); POTASSIUM SERUM 5.2 MMOL/L (3.5-5.1); TOTAL 25(OH) VITAMIN D 48.2 NG/ML (20.0-100.0)
[2022-05-20 22:19] LABS: TOTAL PROTEIN 6.4 G/DL (5.7-8.2)
== END ==
LOC: M SFHCADAM 14:23
PROVIDERS: ATTEND Physician Assistant Medical
DX: N18.32 Chronic kidney disease, stage 3b (principal); G40.909 Epilepsy, unspecified, not intractable, without status epilepticus

== ENCOUNTER → 2022-08-27 | Outpatient (CLI) | payer MEDICARE, OTHER | LOC: M WHC 12:41 | PROVIDERS: ATTEND Physician Assistant Medical | DX: N18.30 Chronic kidney disease, stage 3 unspecified (principal) ==

== ENCOUNTER → 2022-11-19 | Outpatient (REF) | payer MEDICARE, OTHER ==
[2022-11-19 17:34] LABS: CHOLESTEROL RISK RATIO 3.56 (<5); HDL CHOLESTEROL 63.2 MG/DL (>40); LDL CHOLESTEROL 139.8 MG/DL (<100); NON-HDL-C 161.8 MG/DL
[2022-11-19 17:35] LABS: THYROID STIMULATING HORMONE 3.85 uIU/ML (0.55-4.78)
[2022-11-19 17:36] LABS: TOTAL 25(OH) VITAMIN D 64.3 NG/ML (20.0-100.0)
== END ==
LOC: M SFHCADAM 14:26
PROVIDERS: ATTEND Physician Assistant Medical
DX: I42.9 Cardiomyopathy, unspecified (principal); R31.29 Other microscopic hematuria; F03.90 Unspecified dementia, unspecified severity, without behavioral disturbance, psychotic disturbance, mood disturbance, and anxiety; N18.32 Chronic kidney disease, stage 3b

== ENCOUNTER → 2022-11-19 | Outpatient (REF) | payer MEDICARE, OTHER ==
[2022-11-19 17:29] LABS: BASO % 0.5 % (0.0-1.0); EOS # 0.5 10^3/uL (0.0-0.5); EOS % 5.8 % (0.0-3.0); HEMATOCRIT 43.3 % (36.0-47.0); HEMOGLOBIN 13.8 g/dl (12.0-15.5); LYMPH # 1.8 10^3/uL (1.5-5.0); LYMPH % 21.7 % (24.0-44.0); MEAN CORPUSCULAR HEMOGLOBIN 32.6 pg (27.0-33.0); MEAN CORPUSCULAR HGB CONC 31.9 g/dl (32.0-36.5); MEAN CORPUSCULAR VOLUME 102.4 fl (80.0-96.0); MONO # 0.8 10^3/uL (0.0-0.8); NEUTROPHILS # 5.3 10^3/uL (1.5-8.5); NEUTROPHILS % 62.8 % (36.0-66.0); PLATELET COUNT, AUTOMATED 178 10^3/uL (150-450); RED BLOOD COUNT 4.23 10^6/uL (4.00-5.40); WHITE BLOOD COUNT 8.5 10^3/uL (4.0-10.0)
[2022-11-19 17:31] LABS: VALPROIC ACID (DEPAKOTE) 79.6 UG/ML (50.0-100.0)
[2022-11-19 17:33] LABS: ALBUMIN 2.8 G/DL (3.2-5.2); ALKALINE PHOSPHATASE 56 U/L (46-116); ALT/SGPT < 9 U/L (7.0-40); AST/SGOT 11 U/L (<34); BILIRUBIN,TOTAL 0.4 MG/DL (0.3-1.2); BLOOD UREA NITROGEN 42 MG/DL (9-23); CALCIUM LEVEL 9.4 MG/DL (8.3-10.6); CARBON DIOXIDE LEVEL 34 MMOL/L (20-31); CHLORIDE LEVEL 99 MMOL/L (98-107); CREATININE FOR GFR 1.68 MG/DL (0.55-1.30); GLOMERULAR FILTRATION RATE 32.1 (>39); GLUCOSE, FASTING 88 MG/DL (74-106); SODIUM LEVEL 139 MMOL/L (136-145); TOTAL PROTEIN 6.5 G/DL (5.7-8.2)
== END ==
LOC: M LABDRWAD 17:11
PROVIDERS: ATTEND Psychiatry & Neurology Neurology
DX: R56.9 Unspecified convulsions (principal); Z51.81 Encounter for therapeutic drug level monitoring; Z79.899 Other long term (current) drug therapy